=== PATIENT | male | born 1945 | race Caucasian/White ===

== ENCOUNTER 2019-09-25 08:28 | Outpatient (CLI) | payer MEDICARE, MEDICAID, SELFPAY ==
--- NOTE | 2019-09-25 08:40 | EST_ITS ---
Patient Info Name: Calvin Perez Age: 74 years : 1945 Gender: Male Ht: 69 in Wt: 210 lbs BSA: 2.18 m2 HR: 63 bpm Technical Quality: Good Exam Date: 09/25/2019 9:06 AM Exam Location: [facility] Pulmonary Patient Status: Outpatient Admit Date: 09/25/2019 Staff Ordering Physician: Mely Steinberg NP Metallic Yarn Slitting Machine Operator: Magaly Whelan RCS Attending Provider: DAR CONRAD Referring Physician: Idris KITCHEN; Exercise Technologist: Fernanda Cruz RDCS Nurse: Dar Sam ANP, ACNP- Exam Type: CA stress echo Study Info Indications - sob dizziness fatique Treadmill exercise stress echocardiogram is performed. Summary 1. Left ventricular chamber size, wall thickness, systolic and diastolic function are normal with no regional wall motion abnormalities with an estimated ejection fraction of 60-65%. 2. Left ventricular end systolic volume decreases post stress. 3. All segments become normally hyperdynamic. 4. Normal sinus rhythm - normal ECG. 5. No abnormal ST/T wave changes with exercise. Stress Echo Findings Left Ventricle Left ventricular end systolic volume decreases post stress. All segments become normally hyperdynamic. Left Ventricle Left ventricular chamber size, wall thickness, systolic and diastolic function are normal with no regional wall motion abnormalities with an estimated ejection fraction of 60-65%. Protocol: Rudy Stress ECG Details Stage: REST Duration (min): 0 min : 59 sec Speed (mph): 0.0 Grade (%): 0 HR (bpm): 63 SBP (mmHg): 142 DBP (mmHg): 71 METS: --- Stage: REST Duration (min): 9 min : 35 sec Speed (mph): 0.0 Grade (%): 0 HR (bpm): 75 SBP (mmHg): 142 DBP (mmHg): 71 METS: --- Stage: STAGE 1 Duration (min): 1 min : 0 sec Speed (mph): 1.7 Grade (%): 10 HR (bpm): 98 SBP (mmHg): 142 DBP (mmHg): 71 METS: --- Stage: STAGE 1 Duration (min): 2 min : 0 sec Speed (mph): 1.7 Grade (%): 10 HR (bpm): 106 SBP (mmHg): 142 DBP (mmHg): 71 METS: --- Stage: STAGE 1 Duration (min): 3 min : 0 sec Speed (mph): 1.7 Grade (%): 10 HR (bpm): 114 SBP (mmHg): 190 DBP (mmHg): 85 METS: --- Stage: STAGE 2 Duration (min): 1 min : 0 sec Speed (mph): 2.5 Grade (%): 12 HR (bpm): 123 SBP (mmHg): 190 DBP (mmHg): 85 METS: --- Stage: STAGE 2 Duration (min): 2 min : 0 sec Speed (mph): 2.5 Grade (%): 12 HR (bpm): 123 SBP (mmHg): 209 DBP (mmHg): 85 METS: --- Stage: STAGE 2 Duration (min): 3 min : 0 sec Speed (mph): 2.5 Grade (%): 12 HR (bpm): 124 SBP (mmHg): 209 DBP (mmHg): 85 METS: --- Stage: RECOVERY Duration (min): 0 min : 59 sec Speed (mph): 0.0 Grade (%): 0 HR (bpm): 96 SBP (mmHg): 218 DBP (mmHg): 58 METS: --- Stage: RECOVERY Duration (min): 1 min : 59 sec Speed (mph): 0.0 Grade (%): 0 HR (bpm): 90 SBP (mmHg): 218 DBP (mmHg): 58 METS: --- --------
== END 2019-09-25 08:29 | disposition home or self-care (01) ==
PROVIDERS: PCP Family Medicine; Visit Provider Nurse Practitioner
DX: R06.02 Shortness of breath (principal)
CPT/HCPCS: 93351

== ENCOUNTER → 2020-06-06 10:14 | Outpatient (CLI) | payer MEDICARE, MEDICAID, SELFPAY ==
--- NOTE | ~2020-06-06 | XR_ITS ---
EXAMINATION: XR shoulder RT min 2V DATE: 06/06/2020 10:34 INDICATION: Right shoulder pain TECHNIQUE: AP internally and externally rotated, AP oblique externally rotated and transscapular Y vi ews of the right shoulder were obtained. COMPARISON: None FINDINGS: Normal alignment. No fracture. Mild glenohumeral osteoarthritis. Moderate acromioclavicular osteoart hritis. Soft tissues are unremarkable. Calcified nodules in the right midlung zone along with calcifi ed right hilar lymph nodes consistent with old granulomatous disease. Moderate to severe lower cervic al facet osteoarthritis. IMPRESSION: Mild right glenohumeral and moderate acromioclavicular osteoarthritis. Reviewed, dictated and finalized at location B.
== END ==
PROVIDERS: PCP Nurse Practitioner Family; Visit Provider Nurse Practitioner Family
DX: M19.011 Primary osteoarthritis, right shoulder (principal); M47.812 Spondylosis without myelopathy or radiculopathy, cervical region
CPT/HCPCS: 73030

== ENCOUNTER 2020-12-17 09:52 | Outpatient (CLI) | payer MEDICARE, MEDICAID, SELFPAY ==
[2020-12-17 10:24] LABS: Anion Gap 6 mmol/L (8-16); Blood Urea Nitrogen 19 mg/dL (9-20); Calcium 9.4 mg/dL (8.4-10.2); Carbon Dioxide 31 mmol/L (22-30); Chloride 103 mmol/L (98-107); Estimated Glomerular Filt Rate > 60; Glucose 119 mg/dL (65-110); Sodium 140 mmol/L (137-145)
== END 2020-12-17 09:53 | disposition home or self-care (01) ==
LOC: ANHLAB 09:54
PROVIDERS: PCP Nurse Practitioner Family; Visit Provider Nurse Practitioner Family
DX: E87.6 Hypokalemia (principal)
CPT/HCPCS: 36415; 80048

== ENCOUNTER 2021-02-23 12:03 | Emergency (ER) | payer MEDICARE, MEDICAID, SELFPAY ==
--- NOTE | ~2021-02-23 | XR_ITS ---
EXAMINATION: XR abdomen/kub 1V DATE: 02/23/2021 12:45 INDICATION: Hematuria. TECHNIQUE: A supine view of the abdomen on 2 radiographs was obtained. COMPARISON: Chest CT 02/14/2018 FINDINGS: There are no dilated loops of bowel. There is a small volume of stool in the colon. The kid neys are obscured by bowel. IMPRESSION: 1. No definite urolithiasis. Bowel obscures the kidneys. Reviewed, dictated and finalized at location A. S NOTES DEVELOPER
[2021-02-23 12:22] VITALS: BP 139/76; PULSE 57; RESP 18; TEMP 36.4; O2SAT 99
--- NOTE | 2021-02-23 13:36 | ED.MALEGU ---
HPI - Male Genitourinary General Chief complaint: Urogenital-Male Stated complaint: Blood in Urine Time Seen by Provider: 02/23/21 12:50 Source: patient, RN notes reviewed and old records reviewed Mode of arrival: ambulatory Limitations: no limitations History of Present Illness HPI Narrative: 75 year old male presents to express care with complaints of noting acute blood with clots in his urine starting last night and continuing this morning. He reports that he went out to eat with his friend last night and had tea to drink, no alcohol drank for 30 years. Patient denies any pain to his back or any supra pubic tenderness. Patient admits that his stream of urine has slowed but denies any episodes of inability to void. Patient states that he did have some chills last pm but no known fevers. MD Complaint: other (hematuria) Onset (ago): day(s) (since last night) Duration: progressively worsening Related Data Home Medications Medication Instructions Recorded Confirmed cholecalciferol (vitamin D3) 125 10,000 unit PO DAILY tablet 02/16/20 02/23/21 mcg (5,000 unit) tablet besifloxacin [Besivance] 1 drp DIRECTED 02/23/21 02/23/21 loteprednol etabonate [Lotemax SM] drp DIRECTED 02/23/21 pregabalin 50 mg DAILY 02/23/21 02/23/21 Allergies Allergy/AdvReac Type Severity Reaction Status Date / Time clarithromycin Allergy Unknown Dizziness Verified 02/23/21 12:53 Penicillins Allergy Unknown Swelling Verified 02/23/21 12:53 of Lip/Tongue/Throat Review of Systems Review of Systems: CONSTITUTIONAL: Denies fever, positive chills, no sweats. EYES: Denies visual changes, redness, or discharge. ENT: Denies rhinorrhea, congestion, sore throat, or otalgia. CARDIOVASCULAR: Denies chest pain, palpitations, or edema. RESPIRATORY: Denies cough or dyspnea. GASTROINTESTINAL: Denies abdominal pain, nausea, vomiting, or diarrhea. GENITOURINARY: Denies dysuria, positive hematuria with clots noted SKIN: Denies rash or itching. MUSCULOSKELETAL: Denies back pain, chronic right shoulder joint pain, or myalgia. NEUROLOGIC: Denies headache, numbness, or weakness. PSYCHIATRIC: Positive history of anxiety or depression. All systems reviewed & are unremarkable except as noted in HPI and below PMFSH Past Medical History Medical History Anxiety Arthralgia Arthritis Arthritis of shoulder region, right, degenerative Congestion of nasal sinus Dizziness Encounter for screening for malignant neoplasm of prostate GERD (gastroesophageal reflux disease) Hearing loss Hypertension Hypertension, essential, benign Memory loss Normal colonoscopy (~01/13/14) Dr Jernigan Sinus drainage Wears glasses Surgical History Surgical History History of ankle surgery Family History Family History Sibling Family history of diabetes mellitus in first degree relative Other Arthritis Depression Diabetes mellitus Heart disease High cholesterol Hypertension Neuropathy Social History Social History (Updated 02/23/21 @ 17:24 by Oly De Oliveira NP) Smoking status: Never smoker Second hand tobacco smoke exposure: No Alcohol intake: former Alcohol use details: no alcohol intake for 30 years Substance use: never Substance use type: does not use Gender identity (if verbalized by the patient): Male Exam Narrative: GENERAL: Well-appearing, well-nourished, and in no acute distress. HEAD: Normocephalic, atraumatic. EYES: PERRLA and EOMI. ENT: Nares clear, no rhinorrhea or epistaxis. Mucous membranes moist. NECK: Supple. No lymphadenopathy CHEST: Clear to auscultation. No respiratory distress. SaO2 99% on room air HEART: Regular rate and rhythm. No murmur heard. Normal peripheral pulses. ABDOMEN: Soft, nontender to palpation, nondistended, normal active bowel sounds
== END 2021-02-23 13:48 | disposition short-term general hospital (02) ==
PROVIDERS: Emergency Provider Registered Nurse; PCP Nurse Practitioner Family
DX: R31.9 Hematuria, unspecified (principal); R80.9 Proteinuria, unspecified; D70.8 Other neutropenia; I10 Essential (primary) hypertension
CPT/HCPCS: 74018; 81003; 87086; 99213; G0463

== ENCOUNTER 2021-02-23 14:38 | Emergency (ER) | payer MEDICARE, MEDICAID, SELFPAY ==
--- NOTE | ~2021-02-23 | CT_ITS ---
EXAMINATION: CT abdomen pelvis wo con, CT abdomen pelvis w con DATE: 02/23/2021 16:42 (accession [id number]), 02/23/2021 16:45 (accession [id number]) INDICATION: Hematuria TECHNIQUE: Computed tomography (CT) of the abdomen and pelvis was performed without and subsequently with 100 cc Omnipaque 350 intravenous contrast. Automated exposure control and iterative reconstructi on technique were employed. Exam dose: 1117.18 mGy-cm total exam DLP. COMPARISON: None FINDINGS: The lung bases are clear of infiltrate or consolidation. Normal heart size. No pericardia l or pleural effusion. There is a small sliding hiatal hernia. Diffuse hepatic steatosis. There is no hepatic, splenic, pancreatic, adrenal or renal space occupying mass lesion. The gallbladder is present. No bile duct or pancreatic duct dilatation. 4.7 cm and 1.3 cm and smaller left renal cysts. 1.3 cm exophytic lower pole and 8 mm upper pole right renal cysts. 4 mm nonobstructing lower pole right renal calculus. Normal appendix. No bowel obstruction or intraperitoneal free air. Small fat containing umbilical hernia. Small fat containing left inguinal hernia. There is prostate enlargement and calcification. Degenerative spurring of the thoracic and lumbar spine. No suspicious osteolytic or osteoblastic les ions. IMPRESSION: Prostate enlargement Bilateral renal cysts Small nonobstructing right renal calculus Reviewed, dictated and finalized at Location [facility]. Reviewed, dictated and finalized at location B. ER IMPRESSION: Prostate enlargement Bilateral renal cysts Small nonobstructing right renal calculus
[2021-02-23 14:39] VITALS: BP 186/96; PULSE 62; RESP 17; TEMP 36.3; O2SAT 97
[2021-02-23 15:49] LABS: Basophils Percent Auto 0.4 % (0.2-1.2); Eosinophils Absolute Auto 0.1 K/mm3 (0-0.3); Hematocrit 48.5 % (42.0-52.0); Hemoglobin 16.7 g/dL (14.0-18.0); Immature Granulocyte Absolute 0.03 K/mm3 (0.00-0.031); Immature Granulocyte Percent A 0.3 % (0-0.5); Lymphocytes Absolute Auto 2.07 K/mm3 (0.9-3.2); Lymphocytes Percent Auto 22.5 % (18.3-44.2); Mean Corpuscular HGB Conc 34.4 g/dl (32-36); Mean Corpuscular Hemoglobin 31.6 pg (26-34); Mean Corpuscular Volume 91.9 fl (80-100); Mean Platelet Volume 10.5 fl (7.4-10.4); Monocytes Percent Auto 10.8 % (2.6-8.5); Platelet Count Result 246 k/mm3 (150-375); Red Blood Count 5.28 M/mm3 (4.6-6.20); Red Cell Distribution Width 12.2 % (11.5-14.5); White Blood Count 9.2 K/mm3 (4.5-10.0)
[2021-02-23 15:58] LABS: Prothrombin Time 12.9 Seconds (11.1-14.7)
[2021-02-23 15:59] LABS: Partial Thromboplastin Time 27.7 SECONDS (22.3-36.8)
[2021-02-23 16:00] LABS: Add Urine Microscopic? YES; Appearance Urine Turbid (Clear); Bilirubin Urine Negative (Negative); Blood Urine 3+ (Negative); Color Urine Red (Yellow); Glucose Urine UA 1+ mg/dL (Negative); Ketones Urine Trace mg/dL (Negative); Leukocyte Esterase Ur Negative LEU/UL (Negative); Nitrate Urine Negative (Negative); Protein Urine 2+ mg/dL (Negative); RBC Urine >75 /hpf (0-2); Specific Grav Ur 1.018 (1.001-1.035); Urobilinogen Urine Negative mg/dL (<2.0)
[2021-02-23 16:12] LABS: Alanine Aminotransferase 28 U/L (4-50); Albumin Level 4.5 g/dL (3.5-5.1); Alkaline Phosphatase 97 U/L (38-126); Anion Gap 12 mmol/L (8-16); Aspartate Amino Transferase 40 U/L (17-59); Bilirubin,Total 1.4 mg/dL (0.2-1.3); Blood Urea Nitrogen 19 mg/dL (9-20); Calcium 9.8 mg/dL (8.4-10.2); Carbon Dioxide 26 mmol/L (22-30); Chloride 101 mmol/L (98-107); Estimated CRCL calculation 71 ml/min; Estimated Glomerular Filt Rate > 60; Glucose 108 mg/dL (65-110); Potassium 3.6 mmol/L (3.4-5.0); Sodium 139 mmol/L (137-145)
[2021-02-23 16:35] VITALS: BP 169/93; PULSE 80; RESP 18; O2SAT 98
--- NOTE | 2021-02-23 17:03 | ED.MALEGU ---
HPI - Male Genitourinary General Chief complaint: Urogenital-Male <Nan Martin MD - Last Filed: 02/23/21 17:08> Stated complaint: hematuria with clots <Nan Martin MD - Last Filed: 02/23/21 17:08> Time Seen by Provider: 02/23/21 14:41 <Nan Martin MD - Last Filed: 02/23/21 17:08> Source: patient <Nan Martin MD - Last Filed: 02/23/21 17:08> Mode of arrival: ambulatory <Nan Martin MD - Last Filed: 02/23/21 17:08> Limitations: no limitations <Nan Martin MD - Last Filed: 02/23/21 17:08> History of Present Illness HPI Narrative: This is a 75 year old male who presents from urgent care for evaluation of hematuria. Patient started having blood in his urine last night. He also reports passing blood clots in his urine. He reports he is still passing dark red urine but he is unsure of bloods. He denies previous history of hematuria. He also denies blood thinners or aspirin use. He denies abdominal pain, back pain, fever or nausea/vomiting. He denies reports increase nightly urination and some decrease in stream. He states he thought all of this was due to old age. He has never been treated for an enlarged prostate but states his doctor does perform PSA. <Nan Martin MD - Last Filed: 02/23/21 17:08> Related Data Home medications: Home Medications Medication Instructions Recorded Confirmed cholecalciferol (vitamin D3) 125 10,000 unit PO DAILY tablet 02/16/20 02/23/21 mcg (5,000 unit) tablet besifloxacin [Besivance] 1 drp DIRECTED 02/23/21 02/23/21 loteprednol etabonate [Lotemax SM] drp DIRECTED 02/23/21 pregabalin 50 mg DAILY 02/23/21 02/23/21 <Nan Martin MD - Last Filed: 02/23/21 17:08> Allergies/Adverse reactions: Allergies Allergy/AdvReac Type Severity Reaction Status Date / Time clarithromycin Allergy Unknown Dizziness Verified 02/23/21 12:53 Penicillins Allergy Unknown Swelling Verified 02/23/21 12:53 of Lip/Tongue/Throat <Nan Martin MD - Last Filed: 02/23/21 17:08> Review of Systems Review of Systems: All systems reviewed & are unremarkable except as noted in HPI and below <Nan Martin MD - Last Filed: 02/23/21 17:08> [facility] Past Medical History Medical History: Medical History Anxiety Arthralgia Arthritis Arthritis of shoulder region, right, degenerative Congestion of nasal sinus Dizziness Encounter for screening for malignant neoplasm of prostate GERD (gastroesophageal reflux disease) Hearing loss Hypertension Hypertension, essential, benign Memory loss Normal colonoscopy (~01/13/14) Dr Jernigan Sinus drainage Wears glasses <Nan Martin MD - Last Filed: 02/23/21 17:08> Surgical History Surgical History: Surgical History History of ankle surgery <Nan Martin MD - Last Filed: 02/23/21 17:08> Family History Family History: Family History Sibling Family history of diabetes mellitus in first degree relative Other Arthritis Depression Diabetes mellitus Heart disease High cholesterol Hypertension Neuropathy <Nan Martin MD - Last Filed: 02/23/21 17:08> Social History Social History: Social History (Updated 02/23/21 @ 17:24 by Oly De Oliveira NP) Smoking status: Never smoker Second hand tobacco smoke exposure: No Alcohol intake: former Alcohol use details: no alcohol intake for 30 years Substance use: never Substance use type: does not use Gender identity (if verbalized by the patient): Male <Nan Martin MD - Last Filed: 02/23/21 17:08> Exam Const: General: no acute distress and alert <Nan Martin MD - Last Filed: 02/23/21 17:08> HENMT: Head: normocephalic and atraumatic <Nan Martin MD - Last
[2021-02-23 18:40] VITALS: BP 146/77; PULSE 56; RESP 16; O2SAT 99
== END 2021-02-23 18:43 | disposition home or self-care (01) ==
PROVIDERS: Emergency Provider General Practice; PCP Nurse Practitioner Family
DX: N40.0 Benign prostatic hyperplasia without lower urinary tract symptoms (principal); R31.0 Gross hematuria; M19.011 Primary osteoarthritis, right shoulder; K21.9 Gastro-esophageal reflux disease without esophagitis; I10 Essential (primary) hypertension; N28.1 Cyst of kidney, acquired; N20.0 Calculus of kidney
CPT/HCPCS: 36415; 74018; 74176; 74177; 74178; 80053; 81001; 81003; 85025; 85610; 85730; 87086; 99284; Q9967

== ENCOUNTER 2021-12-12 10:14 | Outpatient (CLI) | payer MEDICARE, MEDICAID, SELFPAY ==
[2021-12-12 19:31] LABS: Alanine Aminotransferase 23 U/L (6-50); Albumin Level 4.5 g/dL (3.5-5.1); Alkaline Phosphatase 83 U/L (38-126); Anion Gap 9 mmol/L (8-16); Aspartate Amino Transferase 28 U/L (17-59); Bilirubin,Total 1.5 mg/dL (0.2-1.3); Blood Urea Nitrogen 16 mg/dL (9-20); Calcium 9.2 mg/dL (8.4-10.2); Carbon Dioxide 26 mmol/L (22-30); Chloride 103 mmol/L (98-107); Cholesterol 202 mg/dL (0-200); Estimated Glomerular Filt Rate 59; Glucose 109 mg/dL (65-110); HDL Direct 43 mg/dL; Potassium 4.1 mmol/L (3.4-5.0); Sodium 138 mmol/L (137-145); Triglycerides 174 mg/dL (<150)
[2021-12-12 19:34] LABS: Basophils Absolute Auto 0.1 K/mm3 (0.0-0.1); Basophils Percent Auto 0.8 % (0.2-1.2); Eosinophils Absolute Auto 0.2 K/mm3 (0-0.3); Hematocrit 50.8 % (42.0-52.0); Immature Granulocyte Absolute 0.04 K/mm3 (0.00-0.031); Immature Granulocyte Percent A 0.6 % (0-0.5); Lymphocytes Absolute Auto 1.85 K/mm3 (0.9-3.2); Lymphocytes Percent Auto 29.5 % (18.3-44.2); Mean Corpuscular HGB Conc 33.5 g/dl (32-36); Mean Corpuscular Hemoglobin 31.3 pg (26-34); Mean Corpuscular Volume 93.6 fl (80-100); Mean Platelet Volume 11.1 fl (7.4-10.4); Monocytes Absolute Auto 0.7 K/mm3 (0.1-0.6); Neutrophils Absolute Auto 3.5 K/mm3 (1.3-6.7); Neutrophils Percent Auto 55.1 % (45.5-73.1); Platelet Count Result 232 k/mm3 (150-375); Red Blood Count 5.43 M/mm3 (4.6-6.20); Red Cell Distribution Width 13.5 % (11.5-14.5); White Blood Count 6.3 K/mm3 (4.5-10.0)
[2021-12-12 19:44] LABS: LDL Cholesterol Direct 104 mg/dL
[2021-12-12 20:02] LABS: Prostate Specific Antigen 2.8 ng/mL (< OR = 4.0)
[2021-12-12 20:55] LABS: Vitamin D 25 Hydroxy 73.2 ng/mL
== END 2021-12-12 10:15 | disposition home or self-care (01) ==
LOC: ANHGOSHLAB 10:16
PROVIDERS: PCP Family Medicine; Visit Provider Nurse Practitioner Family
DX: I10 Essential (primary) hypertension (principal); E55.9 Vitamin D deficiency, unspecified; E78.5 Hyperlipidemia, unspecified; Z12.5 Encounter for screening for malignant neoplasm of prostate
CPT/HCPCS: 36415; 80053; 80061; 82306; 84153; 85025; G0103

== ENCOUNTER 2022-06-21 09:45 | Outpatient (CLI) | payer MEDICARE, MEDICAID, SELFPAY ==
[2022-06-21 13:06] LABS: Basophils Absolute Auto 0.1 K/mm3 (0.0-0.1); Basophils Percent Auto 0.7 % (0.2-1.2); Eosinophils Absolute Auto 0.1 K/mm3 (0-0.3); Eosinophils Percent Auto 1.9 % (0-4.4); Hematocrit 49.8 % (42.0-52.0); Hemoglobin 16.9 g/dL (14.0-18.0); Immature Granulocyte Absolute 0.03 K/mm3 (0.00-0.031); Immature Granulocyte Percent A 0.4 % (0-0.5); Lymphocytes Absolute Auto 2.17 K/mm3 (0.9-3.2); Lymphocytes Percent Auto 29.9 % (18.3-44.2); Mean Corpuscular HGB Conc 33.9 g/dl (32-36); Mean Corpuscular Hemoglobin 31.3 pg (26-34); Mean Corpuscular Volume 92.2 fl (80-100); Mean Platelet Volume 11.1 fl (7.4-10.4); Monocytes Absolute Auto 0.9 K/mm3 (0.1-0.6); Monocytes Percent Auto 11.7 % (2.6-8.5); Neutrophils Percent Auto 55.4 % (45.5-73.1); Platelet Count Result 222 k/mm3 (150-375); Red Cell Distribution Width 12.8 % (11.5-14.5); White Blood Count 7.3 K/mm3 (4.5-10.0)
[2022-06-21 13:07] LABS: Alanine Aminotransferase 21 U/L (6-50); Albumin Level 4.3 g/dL (3.5-5.1); Alkaline Phosphatase 76 U/L (38-126); Anion Gap 5 mmol/L (8-16); Aspartate Amino Transferase 44 U/L (17-59); Bilirubin,Total 1.9 mg/dL (0.2-1.3); Blood Urea Nitrogen 21 mg/dL (9-20); Calcium 9.1 mg/dL (8.4-10.2); Carbon Dioxide 32 mmol/L (22-30); Chloride 102 mmol/L (98-107); Cholesterol 183 mg/dL (0-200); Estimated Glomerular Filt Rate > 60; Glucose 116 mg/dL (65-110); HDL Direct 39 mg/dL; Potassium 3.7 mmol/L (3.4-5.0); Sodium 139 mmol/L (137-145); Triglycerides 144 mg/dL (<150)
[2022-06-21 13:18] LABS: LDL Cholesterol Direct 100 mg/dL
[2022-06-21 13:34] LABS: Vitamin D 25 Hydroxy 70.6 ng/mL
[2022-06-21 15:51] LABS: Hemoglobin A1C 5.4 % (<5.7)
== END 2022-06-21 09:46 | disposition home or self-care (01) ==
LOC: ANHGOSHLAB 09:46
PROVIDERS: PCP Family Medicine; Visit Provider Nurse Practitioner Family
DX: E55.9 Vitamin D deficiency, unspecified (principal); I10 Essential (primary) hypertension; E78.5 Hyperlipidemia, unspecified; R73.01 Impaired fasting glucose
CPT/HCPCS: 36415; 80053; 80061; 82306; 83036; 84443; 85025

== ENCOUNTER 2022-12-24 17:56 | Emergency (ER) | payer MEDICARE, MEDICAID, SELFPAY ==
[2022-12-24 18:08] VITALS: BP 152/74; PULSE 71; RESP 20; TEMP 36.3; O2SAT 94
--- NOTE | 2022-12-24 18:15 | PC.NURSE ---
States infected toe is the left great toe.
--- NOTE | 2022-12-24 18:38 | ED.SKABFB ---
HPI - Skin/Abscess/Foreign Bdy General Chief complaint: Skin/Abscess/Foreign Body Stated complaint: Left Big Toe/Skin Sore Source: patient and RN notes reviewed History of Present Illness HPI narrative: 77-year-old male presents to urgent care with complaints of right great toe tenderness, redness, and swelling. Patient states he removed an ingrown toenail in this area last Saturday and has been having issues ever since. Patient began using Neosporin on the area and had improvement today. Denies any fevers, chills, chest pain, shortness of breath, or vomiting. Related Data Home Medications Medication Instructions Recorded Confirmed cholecalciferol (vitamin D3) 125 5,000 unit PO DAILY 12/12/21 06/21/22 mcg (5,000 unit) tablet zinc acetate 50 mg (zinc) capsule 50 mg PO DAILY 06/21/22 06/21/22 Allergies Allergy/AdvReac Type Severity Reaction Status Date / Time clarithromycin Allergy Unknown Dizziness Verified 06/21/22 08:36 Penicillins Allergy Unknown Swelling Verified 06/21/22 08:36 of Lip/Tongue/Throat Review of Systems Review of Systems: CONSTITUTIONAL: Denies fever, chills, or sweats. EYES: Denies visual changes, redness, or discharge. ENT: Denies otalgia and sore throat CARDIOVASCULAR: Denies chest pain, palpitations, or edema. RESPIRATORY: Denies cough or dyspnea. GASTROINTESTINAL: Denies abdominal pain, nausea, vomiting, or diarrhea. GENITOURINARY: Denies dysuria or hematuria. SKIN: Right great toe tenderness, redness, and swelling MUSCULOSKELETAL: Denies back pain, joint pain, or myalgia. NEUROLOGIC: Denies headache, numbness, or weakness. Pertinent positives per HPI. [facility] Past Medical History Medical History Anxiety Arthritis of shoulder region, right, degenerative Cataract (lens) fragments in eye following cataract surgery Dizziness GERD (gastroesophageal reflux disease) Hearing loss Hypertension, essential, benign Memory loss Normal colonoscopy (~01/13/14) Dr Jernigan Vitamin D deficiency Wears glasses Surgical History Surgical History History of ankle surgery Family History Family History Sibling Family history of diabetes mellitus in first degree relative Other Arthritis Depression Diabetes mellitus Heart disease High cholesterol Hypertension Neuropathy Social History Social History (Updated 06/21/22 @ 08:39 by Vera Howell MA) Smoking status: Never smoker Second hand tobacco smoke exposure: No Alcohol intake: former Alcohol use details: no alcohol intake for 30 years Substance use: never Substance use type: does not use Lack of Transportation: No Lack of Food: Never True Current Housing: I Have Housing Concerned About Future Housing: No Difficulty Paying Gas/Electric Bills: No Difficulty Paying for Meds: No Currently Unemployed: No Difficulty w/ Childcare or Family Care: No Occupation/Education: retired Gender identity (if verbalized by the patient): Male Agree to blood products: Yes Comments At the time of my signature, I reviewed and agree with the nursing past medical, surgical, social, and family history. There is no relevant family history pertinent to the patient complaint. Exam Narrative: GENERAL: This is a well-nourished, well-developed patient, in no apparent distress. HEAD: normocephalic, atraumatic. EYES: Sclera clear/white. Vision is grossly intact. EARS: External ears normal, auditory canals clear and without drainage. Hearing grossly intact. NOSE: External nose normal with no obvious nasal discharge, nares without redness, no rhinorrhea. CARDIOVASCULAR: Regular rate and rhythm without murmurs, gallops, or rubs. RESPIRATORY: Clear to auscultation. Breath sounds equal bilaterally. No wheezes, rales, or rhonchi. GASTROINTESTINAL: Abdom
== END 2022-12-24 18:56 | disposition home or self-care (01) ==
PROVIDERS: Emergency Provider Nurse Practitioner Family
DX: L03.032 Cellulitis of left toe (principal); M19.011 Primary osteoarthritis, right shoulder; K21.9 Gastro-esophageal reflux disease without esophagitis; I10 Essential (primary) hypertension; E55.9 Vitamin D deficiency, unspecified
CPT/HCPCS: 99213; G0463

== ENCOUNTER 2022-12-27 09:39 | Outpatient (CLI) | payer MEDICARE, MEDICAID, SELFPAY ==
[2022-12-27 19:48] LABS: Alanine Aminotransferase 20 U/L (6-50); Albumin Level 4.3 g/dL (3.5-5.1); Alkaline Phosphatase 72 U/L (38-126); Anion Gap 8 mmol/L (8-16); Aspartate Amino Transferase 45 U/L (17-59); Bilirubin,Total 2.4 mg/dL (0.2-1.3); Blood Urea Nitrogen 20 mg/dL (9-20); Calcium 9.1 mg/dL (8.4-10.2); Carbon Dioxide 27 mmol/L (22-30); Chloride 102 mmol/L (98-107); Cholesterol 189 mg/dL (0-200); Estimated Glomerular Filt Rate > 60; Glucose 104 mg/dL (65-110); HDL Direct 35 mg/dL; Potassium 3.1 mmol/L (3.4-5.0); Sodium 137 mmol/L (137-145); Triglycerides 171 mg/dL (<150)
[2022-12-27 19:59] LABS: LDL Cholesterol Direct 99 mg/dL
[2022-12-27 20:11] LABS: Basophils Absolute Auto 0.1 K/mm3 (0.0-0.1); Basophils Percent Auto 0.8 % (0.2-1.2); Eosinophils Absolute Auto 0.2 K/mm3 (0-0.3); Eosinophils Percent Auto 3.2 % (0-4.4); Hematocrit 48.9 % (42.0-52.0); Hemoglobin 16.7 g/dL (14.0-18.0); Immature Granulocyte Absolute 0.03 K/mm3 (0.00-0.031); Immature Granulocyte Percent A 0.4 % (0-0.5); Lymphocytes Absolute Auto 2.18 K/mm3 (0.9-3.2); Mean Corpuscular HGB Conc 34.2 g/dl (32-36); Mean Corpuscular Volume 90.7 fl (80-100); Mean Platelet Volume 11.1 fl (7.4-10.4); Monocytes Percent Auto 13.5 % (2.6-8.5); Neutrophils Absolute Auto 3.8 K/mm3 (1.3-6.7); Neutrophils Percent Auto 52.1 % (45.5-73.1); Platelet Count Result 252 k/mm3 (150-375); Red Blood Count 5.39 M/mm3 (4.6-6.20); Red Cell Distribution Width 12.8 % (11.5-14.5); White Blood Count 7.3 K/mm3 (4.5-10.0)
[2022-12-27 20:56] LABS: Hemoglobin A1C 5.4 % (<5.7)
== END 2022-12-27 09:40 | disposition home or self-care (01) ==
LOC: ANHGOSHLAB 09:41
PROVIDERS: PCP Family Medicine; Visit Provider Nurse Practitioner Family
DX: I10 Essential (primary) hypertension (principal); R73.03 Prediabetes; Z13.29 Encounter for screening for other suspected endocrine disorder
CPT/HCPCS: 36415; 80053; 80061; 83036; 84443; 85025

== ENCOUNTER 2023-01-04 09:20 | Outpatient (CLI) | payer MEDICARE, MEDICAID, SELFPAY ==
[2023-01-04 18:33] LABS: Potassium 3.7 mmol/L (3.4-5.0)
== END 2023-01-04 09:21 | disposition home or self-care (01) ==
LOC: ANHGOSHLAB 09:22
PROVIDERS: PCP Family Medicine; Visit Provider Nurse Practitioner Family
DX: E87.6 Hypokalemia (principal)
CPT/HCPCS: 36415; 84132

== ENCOUNTER 2023-01-15 12:32 | Emergency (ER) | payer MEDICARE, MEDICAID, SELFPAY ==
--- NOTE | ~2023-01-15 | XR_ITS ---
XR knee RT min 4V DATE: 01/15/2023 13:15 INDICATION: Twisted right knee TECHNIQUE: 6 views COMPARISON: None FINDINGS: There is a virtually nondisplaced linear intra-articular fracture of the lateral aspect of the patella with suprapatellar joint effusion consistent with hemarthrosis. Prominent patellar enthesopathy at the quadriceps and patellar tendon insertion sites. Mild osteoarthritis including mild loss of height and mild periarticular spurring at the medial kyle rtment primarily. IMPRESSION: Linear intra-articular lateral virtually nondisplaced patellar fracture with hemarthrosis Reviewed, dictated and finalized at location L. OGRAPHIC PRINTING MACHINIST IMPRESSION: Linear intra-articular lateral virtually nondisplaced patellar frac ture with hemarthrosis
[2023-01-15 12:38] VITALS: BP 148/73; PULSE 66; RESP 20; TEMP 36.1; O2SAT 96
--- NOTE | 2023-01-15 12:59 | ED.LOWEXIN ---
HPI - Extremity Injury (Lower) General Chief Complaint: Extremity Injury, Lower Stated Complaint: right knee injury Source: patient and RN notes reviewed Mode of arrival: ambulatory Limitations: no limitations History of Present Illness HPI Narrative: Patient is a 77-year-old male who presents to the [facility] with complaints of right knee pain. Patient states that on Saturday around 2:00 p.m., he was working on his lawnmower when his foot got caught in the discharge at the mower. Patient states that this caused his foot to twist, injuring the right knee. Patient states that he has had significant swelling and decreased range of motion since that time. He states that his range of motion has actually improved over the last couple days. He states that his pain is exacerbated with flexion of the knee. He is neurovascularly intact distally. Sensation is intact and he denies numbness. There is a notable abrasion and swelling to the right anterior knee. Related Data Home Medications Medication Instructions Recorded Confirmed cholecalciferol (vitamin D3) 125 5,000 unit PO DAILY 12/12/21 01/15/23 mcg (5,000 unit) tablet zinc acetate 50 mg (zinc) capsule 50 mg PO DAILY 06/21/22 01/15/23 Allergies Allergy/AdvReac Type Severity Reaction Status Date / Time clarithromycin Allergy Unknown Dizziness Verified 01/15/23 13:19 Penicillins Allergy Unknown Swelling Verified 01/15/23 13:19 of Lip/Tongue/Throat Review of Systems Review of Systems: CONSTITUTIONAL: Denies fever, chills, or sweats. EYES: Denies visual changes, redness, or discharge. ENT: Denies otalgia and sore throat CARDIOVASCULAR: Denies chest pain, palpitations, or edema. RESPIRATORY: Denies cough or dyspnea. GASTROINTESTINAL: Denies abdominal pain, nausea, vomiting, or diarrhea. GENITOURINARY: Denies dysuria or hematuria. SKIN: Denies rash or itching. MUSCULOSKELETAL: Denies back pain or myalgia. Reports right knee pain and swelling. NEUROLOGIC: Denies headache, numbness, or weakness. Pertinent positives per HPI. [facility] Past Medical History Medical History Anxiety Arthritis of shoulder region, right, degenerative Bunion Cataract (lens) fragments in eye following cataract surgery Dizziness GERD (gastroesophageal reflux disease) Hearing loss Hypertension, essential, benign Hypokalemia Memory loss Normal colonoscopy (~01/13/14) Dr Jernigan Vitamin D deficiency Wears glasses Surgical History Surgical History History of ankle surgery Family History Family History Sibling Family history of diabetes mellitus in first degree relative Other Arthritis Depression Diabetes mellitus Heart disease High cholesterol Hypertension Neuropathy Social History Social History Smoking status: Never smoker Second hand tobacco smoke exposure: No Alcohol intake: former Alcohol use details: no alcohol intake for 30 years Substance use: never Substance use type: does not use Lack of Transportation: No Lack of Food: Never True Current Housing: I Have Housing Concerned About Future Housing: No Difficulty Paying Gas/Electric Bills: No Difficulty Paying for Meds: No Currently Unemployed: No Difficulty w/ Childcare or Family Care: No Occupation/Education: retired Gender identity (if verbalized by the patient): Male Agree to blood products: Yes Comments At the time of my signature, I reviewed and agree with the nursing past medical, surgical, social, and family history. There is no relevant family history pertinent to the patient complaint. Exam Narrative: GENERAL: This is a well-nourished, well-developed patient, in no apparent distress. HEAD: normocephalic, atraumatic. EYES: PERR
== END 2023-01-15 13:48 | disposition home or self-care (01) ==
PROVIDERS: Emergency Provider Nurse Practitioner; PCP Family Medicine
DX: S82.001A Unspecified fracture of right patella, initial encounter for closed fracture (principal); W22.8XXA Striking against or struck by other objects, initial encounter; M19.011 Primary osteoarthritis, right shoulder; K21.9 Gastro-esophageal reflux disease without esophagitis; I10 Essential (primary) hypertension; E55.9 Vitamin D deficiency, unspecified
CPT/HCPCS: 73564; 99214; G0463; L1830

== ENCOUNTER 2023-02-26 11:54 | Outpatient (CLI) | payer MEDICARE, MEDICAID, SELFPAY ==
--- NOTE | ~2023-02-26 | XR_ITS ---
EXAMINATION: XR knee RT min 4V DATE: 02/26/2023 12:26 INDICATION: Unspecified fracture of right patella. TECHNIQUE: 4 views of right knee were obtained. COMPARISON: Right knee radiographs 01/15/2023 FINDINGS: Bone alignment is normal. There is a sagittal fracture through patellar lateral facet with less than 2 mm distraction. There is moderate osteoarthritis of medial compartment and mild osteoarth ritis of lateral and patellofemoral compartments. No knee joint effusion. IMPRESSION: 1. Unchanged sagittal fracture through lateral facet of patella. 2. Moderate right knee osteoarthritis. Reviewed, dictated and finalized at location E. ONNEL RECORDS CLERK
== END 2023-02-26 11:55 | disposition home or self-care (01) ==
PROVIDERS: PCP Family Medicine; Visit Provider Orthopaedic Surgery
DX: S82.001A Unspecified fracture of right patella, initial encounter for closed fracture (principal); M17.11 Unilateral primary osteoarthritis, right knee; X58.XXXA Exposure to other specified factors, initial encounter
CPT/HCPCS: 73564

== ENCOUNTER 2023-05-01 16:32 | Emergency (ER) | payer MEDICARE, MEDICAID, SELFPAY ==
[2023-05-01 16:38] VITALS: BP 125/72; PULSE 64; RESP 16; TEMP 36.3; O2SAT 98
--- NOTE | 2023-05-01 16:56 | ED.URI ---
HPI - URI/Sore Throat General Chief Complaint: Upper Respiratory Infection Stated Complaint: cough/wheezing History of Present Illness HPI Narrative: pt is a 77 y/o male, presents to with two week hx of increased sneezing, nasal congestion and the sensation of post nasal drip for the past week that has woke him at night with coughing. He occasionally wheezes as a result. He is scheduled to see an driver license examiner who has discussed the option of allergy injections however, he feels his symptoms are disrupting his sleep and is concerned he is developing a sinus infection. His nasal discharge is clear. He has no significant cough during the say and his cough is always dry. He denies fevers or chills and he has no known sick contacts or COV exposures. He is not taking any OTC or prescription medication for symptom relief as he notes he has tried all the OTC stuff and none of it works . He denies any other associated symptoms or modifying factors. Related Data Home Medications Medication Instructions Recorded Confirmed cholecalciferol (vitamin D3) 125 5,000 unit PO DAILY 12/12/21 05/01/23 mcg (5,000 unit) tablet zinc acetate 50 mg (zinc) capsule 50 mg PO DAILY 06/21/22 05/01/23 Allergies Allergy/AdvReac Type Severity Reaction Status Date / Time clarithromycin Allergy Unknown Dizziness Verified 05/01/23 16:53 Penicillins Allergy Unknown Swelling Verified 05/01/23 16:53 of Lip/Tongue/Throat Review of Systems ENT: Comments: refer to HPI Respiratory: Comments: refer to HPI [facility] Past Medical History Medical History Anxiety Arthritis of shoulder region, right, degenerative Bunion Cataract (lens) fragments in eye following cataract surgery Closed nondisplaced fracture of right patella Dizziness GERD (gastroesophageal reflux disease) Hearing loss History of patellar fracture (~01/15/23) Rt Hypertension, essential, benign Hypokalemia Memory loss Normal colonoscopy (~01/13/14) Dr Jernigan Vitamin D deficiency Wears glasses Surgical History Surgical History History of ankle surgery Family History Family History Sibling Family history of diabetes mellitus in first degree relative Other Arthritis Depression Diabetes mellitus Heart disease High cholesterol Hypertension Neuropathy Social History Social History (Updated 03/29/23 @ 15:52 by Jayna Brown) Smoking status: Never smoker Second hand tobacco smoke exposure: No Alcohol intake: former Alcohol use details: no alcohol intake for 30 years Substance use: never Substance use type: does not use Do You Feel Safe in your Home?: Yes Lack of Transportation: No Lack of Food: Never True Current Housing: I Have Housing Concerned About Future Housing: No Difficulty Paying Gas/Electric Bills: No Difficulty Paying for Meds: No Currently Unemployed: No Difficulty w/ Childcare or Family Care: No Occupation/Education: retired Gender identity (if verbalized by the patient): Male Agree to blood products: Yes Exam Const: General: healthy appearing, no acute distress and alert Nutritional Appearance: well nourished Orientation/consciousness: patient oriented x3 HENMT: Head: normal to inspection Ears: external ears normal and TM abnormal retracted bilateral Face and sinus: normal facial exam and sinuses nontender Mouth: Yes Normal oral and palatal mucosa present Teeth and gingiva: dentition normal Throat: posterior oropharynx normal and uvula midline Other: nasal mucosa is swollen without erythema or purulent drainage Eyes: Conjunctivae: conjunctivae normal Pupils: Equal, round and reactive pupils present EOM: EOMs intact bilaterally Direct Ophthalmoscopy: no photophobia Neck: Neck: normal visual inspection, no lymphadenopathy and no
== END 2023-05-01 17:10 | disposition home or self-care (01) ==
PROVIDERS: Emergency Provider Nurse Practitioner Family
DX: J00 Acute nasopharyngitis [common cold] (principal); J30.2 Other seasonal allergic rhinitis; K21.9 Gastro-esophageal reflux disease without esophagitis; I10 Essential (primary) hypertension; E55.9 Vitamin D deficiency, unspecified; M19.011 Primary osteoarthritis, right shoulder
CPT/HCPCS: 99213; G0463

== ENCOUNTER 2023-07-05 09:40 | Outpatient (CLI) | payer MEDICARE, MEDICAID, SELFPAY ==
[2023-07-05 20:15] LABS: Basophils Percent Auto 0.6 % (0.2-1.2); Eosinophils Absolute Auto 0.1 K/mm3 (0-0.3); Eosinophils Percent Auto 2.1 % (0-4.4); Hemoglobin 17.2 g/dL (14.0-18.0); Immature Granulocyte Absolute 0.04 K/mm3 (0.00-0.031); Immature Granulocyte Percent A 0.6 % (0-0.5); Lymphocytes Absolute Auto 1.69 K/mm3 (0.9-3.2); Lymphocytes Percent Auto 27.1 % (18.3-44.2); Mean Corpuscular HGB Conc 33.7 g/dl (32-36); Mean Corpuscular Hemoglobin 30.6 pg (26-34); Mean Corpuscular Volume 90.6 fl (80-100); Mean Platelet Volume 11.3 fl (7.4-10.4); Monocytes Absolute Auto 0.8 K/mm3 (0.1-0.6); Monocytes Percent Auto 12.3 % (2.6-8.5); Neutrophils Absolute Auto 3.6 K/mm3 (1.3-6.7); Neutrophils Percent Auto 57.3 % (45.5-73.1); Platelet Count Result 225 k/mm3 (150-375); Red Blood Count 5.63 M/mm3 (4.6-6.20); Red Cell Distribution Width 12.6 % (11.5-14.5); White Blood Count 6.2 K/mm3 (4.5-10.0)
[2023-07-05 20:21] LABS: Alanine Aminotransferase 17 U/L (6-50); Albumin Level 4.3 g/dL (3.5-5.1); Alkaline Phosphatase 83 U/L (38-126); Anion Gap 8 mmol/L (4-12); Aspartate Amino Transferase 29 U/L (17-59); Bilirubin,Total 1.8 mg/dL (0.2-1.3); Blood Urea Nitrogen 18 mg/dL (9-20); Calcium 9.2 mg/dL (8.4-10.2); Carbon Dioxide 27 mmol/L (22-30); Chloride 104 mmol/L (98-107); Cholesterol 189 mg/dL (0-200); Estimated Glomerular Filt Rate > 60; Glucose 114 mg/dL (65-110); HDL Direct 41 mg/dL; Potassium 3.7 mmol/L (3.4-5.0); Sodium 139 mmol/L (137-145); Triglycerides 168 mg/dL (<150)
[2023-07-05 20:32] LABS: LDL Cholesterol Direct 109 mg/dL
[2023-07-05 21:20] LABS: Hemoglobin A1C 5.4 % (<5.7)
[2023-07-08 13:13] LABS: PSA, Free 0.7 ng/mL; PSA, Total 2.4 ng/mL (< OR = 4.0); Percent Free Prostate Spec Ag 29 % (calc) (>25)
== END 2023-07-05 09:41 | disposition home or self-care (01) ==
LOC: ANHGOSHLAB 09:42
PROVIDERS: Nurse Practitioner Family; PCP Family Medicine; Visit Provider Nurse Practitioner Family
DX: R73.03 Prediabetes (principal); Z12.5 Encounter for screening for malignant neoplasm of prostate; I10 Essential (primary) hypertension; Z13.29 Encounter for screening for other suspected endocrine disorder; Z13.220 Encounter for screening for lipoid disorders
CPT/HCPCS: 36415; 80053; 80061; 83036; 84153; 84154; 84443; 85025

== ENCOUNTER 2023-08-12 08:17 | Outpatient (CLI) | payer MEDICARE, MEDICAID, SELFPAY ==
--- NOTE | ~2023-08-12 | CT_ITS ---
Non-contrast Head CT History: Dizziness and giddiness Technique: Axial non-contrast imaging of the brain was performed. Dose reduction technique was used on this scan by utilizing automated exposure control and iterative reconstruction technique. The dose -length product (DLP) was 599.57 mGy-cm. Findings: There is no evidence of intracranial hemorrhage, mass lesion, or acute infarct. Brain par enchyma appears normal. The ventricles and subarachnoid spaces are normal in size. The calvarium ap pears normal. The visualized paranasal sinuses and mastoid air cells are clear. Impression: No significant abnormality seen. Reviewed, dictated and finalized at location . Impression: No significant abnormality seen.
== END 2023-08-12 08:18 ==
PROVIDERS: PCP Family Medicine; Visit Provider Nurse Practitioner
DX: R42 Dizziness and giddiness (principal)
CPT/HCPCS: 70450

== ENCOUNTER 2023-10-29 08:45 | Emergency (ER) | payer MEDICARE, MEDICAID, SELFPAY ==
--- NOTE | ~2023-10-29 | XR_ITS ---
Right elbow Technique: AP, oblique, and lateral views were obtained. Clinical History: Pain Findings: No acute fracture or dislocation is seen. There is a large chronic ossification of the post erior elbow, which could reflect chronic nonunited fracture of the olecranon. Osseous alignment is an atomic. Joint spaces are preserved. There is no displacement of the fat pads, and soft tissues are un remarkable. Impression: No acute abnormality. Large corticated ossification posteriorly, likely chronic, nonunited olecranon fracture. Reviewed, dictated and finalized at location M. Impression: No acute abnormality. Large corticated ossification posteriorly, likely chronic, nonunited olecranon fracture.
[2023-10-29 09:02] VITALS: BP 130/71; PULSE 55; RESP 18; TEMP 36.2; O2SAT 96
--- NOTE | 2023-10-29 09:47 | ED.UPPEXIN ---
HPI - Extremity Injury (Upper) General Chief Complaint: Extremity Injury, Upper Stated Complaint: Right Elbow Injury History of Present Illness HPI narrative: patient is a 78-year-old male, presents to [facility] with right elbow pain, he states that last night he went out onto his porch to get some fresh air and slipped/tripped over a board he did not see in his path. He was able to catch himself with his right upper extremity however he states that he strained his forearm and felt a pop in his right elbow. He describes the injury as jamming the elbow. He states the pain is slightly improved today however he does have soreness in the elbow joint and was concerned he may have caused a fracture, prompting his visit. He denies recollection of prior fracture injuries to the right elbow in the past. He does have history of olecranon bursitis in that area. He denies any additional injuries as result of this incident. He did not hit his head or experience LOC. He has no neck or back pain. He denies distal paresthesias. No modifying factors were attempted. He is right-hand dominant. Related Data Home Medications Medication Instructions Recorded Confirmed cholecalciferol (vitamin D3) 125 5,000 unit PO DAILY 12/12/21 10/29/23 mcg (5,000 unit) tablet tamsulosin 0.4 mg capsule 0.4 mg PO DAILY 10/29/23 10/29/23 Allergies Allergy/AdvReac Type Severity Reaction Status Date / Time clarithromycin Allergy Unknown Dizziness Verified 10/29/23 09:27 Penicillins Allergy Unknown Swelling Verified 10/29/23 09:27 of Lip/Tongue/Throat Review of Systems Musculoskeletal: Comments: Refer to [facility] Past Medical History Medical History Anxiety Arthritis of shoulder region, right, degenerative Bunion Cataract (lens) fragments in eye following cataract surgery Closed nondisplaced fracture of right patella Dizziness GERD (gastroesophageal reflux disease) Hearing loss History of patellar fracture (~01/15/23) Rt Hypertension, essential, benign Hypokalemia Memory loss Normal colonoscopy (~01/13/14) Dr Jernigan Vitamin D deficiency Wears glasses Surgical History Surgical History History of ankle surgery Family History Family History Sibling Family history of diabetes mellitus in first degree relative Other Arthritis Depression Diabetes mellitus Heart disease High cholesterol Hypertension Neuropathy Social History Social History (Updated 08/08/23 @ 10:04 by Meenakshi Richard) Social History: caffeine occasionally Smoking status: Never smoker Second hand tobacco smoke exposure: No Alcohol intake: former Alcohol use details: no alcohol intake for 30 years Substance use: never Substance use type: does not use Do You Feel Safe in your Home?: Yes Lack of Transportation: No Lack of Food: Never True Current Housing: I Have Housing Concerned About Future Housing: No Difficulty Paying Gas/Electric Bills: No Difficulty Paying for Meds: No Currently Unemployed: No Difficulty w/ Childcare or Family Care: No Occupation/Education: retired Gender identity (if verbalized by the patient): Male Agree to blood products: Yes Exam Const: General: healthy appearing, no acute distress and alert Nutritional Appearance: well nourished Orientation/consciousness: patient oriented x3 Limitations: no limitations HENMT: Head: normal to inspection Ears: external ears normal Mouth: Yes Normal oral and palatal mucosa present and Yes lip normal Eyes: Conjunctivae: conjunctivae normal Pupils: Equal, round and reactive pupils present EOM: EOMs intact bilaterally Neck: Neck: normal visual inspection and no lymphadenopathy Other: no C-spine point tenderness, step-offs no cervical paraspinal muscle tenderness to palpa
== END 2023-10-29 10:10 | disposition home or self-care (01) ==
PROVIDERS: Emergency Provider Nurse Practitioner Family; PCP Nurse Practitioner Family
DX: S56.911A Strain of unspecified muscles, fascia and tendons at forearm level, right arm, initial encounter (principal); W18.49XA Other slipping, tripping and stumbling without falling, initial encounter; K21.9 Gastro-esophageal reflux disease without esophagitis; I10 Essential (primary) hypertension; E55.9 Vitamin D deficiency, unspecified
CPT/HCPCS: 73080; 99213; G0463

== ENCOUNTER 2024-01-13 09:28 | Emergency (ER) | payer MEDICARE, MEDICAID, SELFPAY ==
--- NOTE | ~2024-01-13 | CT_ITS ---
CT abdomen pelvis wo con Ordering provider: Griffin Torres MD History: 78 years Male with . hematuria . Comparison: None. Technique: CT abdomen and pelvis without IV and without oral contrast. Automated exposure control and iterative reconstruction technique were employed. The dose-length product was 529.23 mGy-cm. Findings: VISUALIZED LOWER CHEST: Normal. Right hilar calcified lymph nodes. UPPER ABDOMINAL ORGANS: Liver: Normal. Gallbladder: Cholelithiasis. Spleen: Normal. Stomach/duodenum: Small sliding hernia. Pancreas: Atrophic. Adrenals: Normal. Kidneys: Cyst in the left kidney midpole measuring 4.3 x 5.4 cm. Tiny cyst in the left kidney lower p ole. Tiny stone in the right kidney lower pole. Tiny cyst in the right kidney lower pole. PELVIC ORGANS: The bladder is underfilled. Soft tissue density is seen in the urinary bladder which m ay be a mass or blood clot. Cystoscopy is advised. BOWEL AND MESENTERY: Colon: No evidence of diverticulitis. Normal appendix. Small Bowel: Normal. No obstruction. Peritoneum/mesentery: No free air or free fluid. No mesenteric lymphadenopathy. RETROPERITONEUM: Mild atheromatous disease of the abdominal aorta. No retroperitoneal lymphadenopat hy. MUSCULOSKELETAL: Superficial soft tissues: Small fat-containing umbilical hernia. Otherwise, The superficial soft tiss ues are normal. Bones: Age appropriate degenerative changes of the spine. IMPRESSION: 1. Soft tissue density in the urinary bladder suggestive of a mass or a clot.. Cystoscopy is advised . 2. Cholelithiasis. 3. Tiny Stone in the right kidney lower pole. 4. Bilateral renal cysts with the largest in the left kidney midpole. 5. Small sliding hiatus hernia. Small fat-containing umbilical hernia. Reviewed, dictated and finalized at location A. S TEAM LEADER IMPRESSION: 1. Soft tissue density in the urinary bladder suggestive of a mass or a clot.. Cystoscopy is advised. 2. Cholelithiasis. 3. Tiny Stone in the right kidney lower pole. 4. Bilateral renal cysts with the largest in the left kidney midpole. 5. Small sliding hiatus hernia. Small fat-containing umbilical hernia.
[2024-01-13 09:45] VITALS: BP 150/74; PULSE 65; RESP 17; TEMP 36.5; O2SAT 96
[2024-01-13 10:18] LABS: Add Urine Microscopic? YES; Appearance Urine Turbid (Clear); Bacteria Urine None Seen /hpf; Squamous Epithelial Cell Urine Occasional /hpf (Few); WBC Urine 21-50 /hpf (0-3)
[2024-01-13 10:19] LABS: Color Urine Red (Yellow); Need Manual Microscopic Reviewed; RBC Urine >100 /hpf (0-2)
--- NOTE | 2024-01-13 11:43 | ED.GENADULT ---
HPI - General Adult General Chief complaint: Urogenital-Male Stated complaint: hematuria Time Seen by Provider: 01/13/24 11:09 History of Present Illness HPI narrative: 78-year-old male presenting to the emergency department for evaluation for hematuria this been ongoing for the last 4 days. Patient states over the last 4 days he has had some strings of clots in his urine. Patient is on blood pressure medications but is not on any blood thinners. Patient does have prior history of hematuria. Patient denies any urinary retention. Related Data Home Medications Medication Instructions Recorded Confirmed cholecalciferol (vitamin D3) 125 5,000 unit PO DAILY 12/12/21 01/06/24 mcg (5,000 unit) tablet Allergies Allergy/AdvReac Type Severity Reaction Status Date / Time clarithromycin Allergy Unknown Dizziness Verified 01/13/24 09:48 Penicillins Allergy Unknown Swelling Verified 01/13/24 09:48 of Lip/Tongue/Throat Review of Systems Review of Systems: All systems reviewed & are unremarkable except as noted in HPI and below PMFSH Past Medical History Medical History Anxiety Arthritis of shoulder region, right, degenerative Bunion Cataract (lens) fragments in eye following cataract surgery Closed nondisplaced fracture of right patella Dizziness GERD (gastroesophageal reflux disease) Hearing loss History of patellar fracture (~01/15/23) Rt Hypertension, essential, benign Hypokalemia Memory loss Normal colonoscopy (~01/13/14) Dr Jernigan Vitamin D deficiency Wears glasses Surgical History Surgical History History of ankle surgery Family History Family History Sibling Family history of diabetes mellitus in first degree relative Other Arthritis Depression Diabetes mellitus Heart disease High cholesterol Hypertension Neuropathy Social History Social History Social History: caffeine occasionally Smoking status: Never smoker Second hand tobacco smoke exposure: No Alcohol intake: former Alcohol use details: no alcohol intake for 30 years Substance use: never Substance use type: does not use Do You Feel Safe in your Home?: Yes Lack of Transportation: No Lack of Food: Never True Current Housing: I Have Housing Concerned About Future Housing: No Difficulty Paying Gas/Electric Bills: No Difficulty Paying for Meds: No Currently Unemployed: No Difficulty w/ Childcare or Family Care: No Occupation/Education: retired Gender identity (if verbalized by the patient): Male Agree to blood products: Yes Exam Narrative: APPEARANCE: Well appearing, no pain, no distress, well-nourished. HEAD: normocephalic, atraumatic. EYES: PERRLA/EOMI, conjunctivae clear. NOSE: Normal no drainage EARS:TMS clear with good light reflex. THROAT: Pharynx clear, no exudate. NECK: Supple. No adenopathy, no masses. RESPIRATORY: Airway patent, respirations nonlabored. Clear to auscultation bilaterally, no rales, rhonchi, wheezing. CARDIOVASCULAR: Regular rate and rhythm without murmurs rubs or gallops. ABDOMINAL: Soft, nontender, nondistended, normal bowel sounds MUSCULOSKELETAL: Moves all extremities. Strength/ROM intact, No edema, No calf tenderness. NEURO: Alert. Cranial nerves II through XII intact. Good gait. Good coordination SKIN: Warm, dry. Normal Color Course Vital Signs Vital signs: Vital Signs Temperature 97.7 F 01/13/24 09:45 Pulse Rate 65 01/13/24 09:45 Respiratory Rate 17 01/13/24 09:45 Blood Pressure 150/74 H 01/13/24 09:45 Pulse Oximetry 96 01/13/24 09:45 Oxygen Delivery Room Air 01/13/24 09:45 Temperature 97.7 F 01/13/24 09:45 Pulse Rate 75 01/13/24 14:04 Respiratory Rate 18 01/13/24 14:04 Blood Pressure 145/82 H 01/13/24 14:04 Pulse Oximetry 98 01/13/24 14:04 Oxygen Delivery Room Air 01/13/24 09:45 Medical Decision Making [facility] Narrative Medical decision making narrative: 70-year-old male presents to the emergency department for evaluation for hematuria. Patient denies any urinary retention. Patient denies any pain with urination. CT scan showed soft tissue density in the urinary bladder suggestive of a mass or a clot. Cystoscopy is advised. Bladder scan showed no retained urine postvoid. Patient was updated results of his workup. Patient states that he will have close follow-up with Urology. Patient was also updated on reasons to return to the emergency department. All questions concerns were addressed. Patient was treated for a potential underlying urinary tract infection. Differential Diagnosis Differential Diagnosis: UTI, urinary retention, bladder mass, large clot Vital Signs Vital Signs: Vital Signs Temperature 97.7 F 01/13/24 09:45 Pulse Rate 65 01/13/24 09:45 Respiratory Rate 17 01/13/24 09:45 Blood Pressure 150/74 H 01/13/24 09:45 Pulse Oximetry 96 01/13/24 09:45 Oxygen Delivery Room Air 01/13/24 09:45 Temperature 97.7 F 01/13/24 09:45 Pulse Rate 75 01/13/24 14:04 Respiratory Rate 18 01/13/24 14:04 Blood Pressure 145/82 H 01/13/24 14:04 Pulse Oximetry 98 01/13/24 14:04 Oxygen Delivery Room Air 01/13/24 09:45 Lab Data Lab results reviewed: Yes I reviewed the patient's lab results. 01/13/24 12:41 01/13/24 11:54 Labs: Lab Results 01/13/24 01/13/24 01/13/24 Range/Units 09:56 11:54 12:41 WBC 7.9 (4.5-10.0) K/mm3 RBC 5.70 (4.6-6.20) M/mm3 Hgb 17.8 (14.0-18.0) g/dL Hct 51.0 (42.0-52.0) % MCV 89.5 (80-100) fl MCH 31.2 (26-34) pg MCHC 34.9 (32-36) g/dl RDW 12.5 (11.5-14.5) % Plt Count 243 (150-375) k/mm3 MPV 10.1 (7.4-10.4) fl Immature Gran % (Auto) 0.5 (0-0.5) % Neut % (Auto) 53.1 (45.5-73.1) % Lymph % (Auto) 32.2 (18.3-44.2) % [place] % (Auto) 11.8 H (2.6-8.5) % Eos % (Auto) 1.9 (0-4.4) % Baso % (Auto) 0.5 (0.2-1.2) % Lymph # (Auto) 2.55 (0.9-3.2) K/mm3 [place] # (Auto) 0.9 H (0.1-0.6) K/mm3 Eos # (Auto) 0.2 (0-0.3) K/mm3 Baso # (Auto) 0.0 (0.0-0.1) K/mm3 Abs Immat Gran (auto) 0.04 H (0.00-0.031) K/mm3 Absolute Neuts (auto) 4.2 (1.3-6.7) K/mm3 Absolute Nucleated RBC 0.000 (0.0-0.012) K/mm3 Nucleated RBC % 0.0 (0.0-0.2) % PT 14.8 H (11.1-14.7) Seconds INR 1.1 APTT 27.1 (22.3-36.8) Seconds Sodium 138 (137-145) mmol/L Potassium 3.9 (3.4-5.0) mmol/L Chloride 102 (98-107) mmol/L Carbon Dioxide 28 (22-30) mmol/L Anion Gap 8 (4-12) mmol/L BUN 21 H (9-20) mg/dL Creatinine 1.00 (0.7-1.3) mg/dL Estim Creat Clear Calc 63 ml/min Estimated GFR > 60 (59 - ) Glucose 75 (65-110) mg/dL Calcium 9.3 (8.4-10.2) mg/dL Total Bilirubin 1.7 H (0.2-1.3) mg/dL AST 35 (17-59) U/L ALT 22 (6-50) U/L Alkaline Phosphatase 78 (38-126) U/L Total Protein 9.0 H (6.3-8.2) g/dL Albumin 4.6 (3.5-5.1) g/dL Urine Color Red H (Yellow) Urine Appearance Turbid H (Clear) Urine pH TNP Ur Specific [place] TNP Urine Protein TNP Urine Glucose (UA) TNP Urine Ketones TNP Ur Blood (Man) TNP Urine Nitrate TNP Urine Bilirubin TNP Urine Urobilinogen TNP Add Ur Microanalysis Reviewed Leukocyte Esterase Rfl TNP Urine RBC >100 H (0-2) /hpf Urine WBC 21-50 H (0-3) /hpf Ur Squamous Epith Cells Occasional (Few) /hpf Urine Bacteria None seen /hpf Urine Casts 3-5 Imaging Data Radiologist's impression: Impressions Abdomen/Pelvis CT 01/13/24 11:50 IMPRESSION: 1. Soft tissue density in the urinary bladder suggestive of a mass or a clot.. Cystoscopy is advised. 2. Cholelithiasis. 3. Tiny Stone in the right kidney lower pole. 4. Bilateral renal cysts with the largest in the left kidney midpole. 5. Small sliding hiatus hernia. Small fat-containing umbilical hernia. Discharge Plan Discharge Clinical Impression: Hematuria Patient Disposition: Home, Self-Care Condition: Stable Instructions: Antibiotic Form, Hematuria (ED) Additional Instructions: CT scan showed a nonobstructing mass versus a blood clot. You will need to have a cystoscopy. You need to have close follow-up with Urology. Antibiotic as directed until completed. Worsening symptoms please call or return to the emergency department. Prescriptions: New levofloxacin 750 mg tablet 750 mg PO DAILY 7 Days Qty: 7 0RF No Action cholecalciferol (vitamin D3) 125 mcg (5,000 unit) tablet 5,000 unit PO DAILY chlorthalidone 25 mg tablet 25 mg PO DAILY Qty: 90 1RF atenolol 50 mg tablet 50 mg PO DAILY Qty: 90 1RF potassium chloride 20 mEq tablet extended release 20 meq PO DAILY Qty: 90 1RF tamsulosin 0.4 mg capsule 0.4 mg PO DAILY Qty: 90 1RF omeprazole 20 mg capsule,delayed release(DR/EC) 20 mg PO DAILY Qty: 90 1RF clonazepam 2 mg tablet 2 mg PO BID PRN (Reason: anxiety) Qty: 60 1RF Follow-up/Referrals: Juan Pablo Pickens MD [Physician] - Laurita Lewis NP [Primary Care Provider] -
[2024-01-13 12:33] LABS: Alanine Aminotransferase 22 U/L (6-50); Albumin Level 4.6 g/dL (3.5-5.1); Alkaline Phosphatase 78 U/L (38-126); Anion Gap 8 mmol/L (4-12); Aspartate Amino Transferase 35 U/L (17-59); Bilirubin,Total 1.7 mg/dL (0.2-1.3); Blood Urea Nitrogen 21 mg/dL (9-20); Calcium 9.3 mg/dL (8.4-10.2); Carbon Dioxide 28 mmol/L (22-30); Chloride 102 mmol/L (98-107); Estimated CRCL calculation 63 ml/min; Estimated Glomerular Filt Rate > 60; Glucose 75 mg/dL (65-110); Potassium 3.9 mmol/L (3.4-5.0); Sodium 138 mmol/L (137-145)
[2024-01-13 12:46] LABS: Basophils Percent Auto 0.5 % (0.2-1.2); Eosinophils Absolute Auto 0.2 K/mm3 (0-0.3); Eosinophils Percent Auto 1.9 % (0-4.4); Hemoglobin 17.8 g/dL (14.0-18.0); Immature Granulocyte Absolute 0.04 K/mm3 (0.00-0.031); Immature Granulocyte Percent A 0.5 % (0-0.5); Lymphocytes Absolute Auto 2.55 K/mm3 (0.9-3.2); Lymphocytes Percent Auto 32.2 % (18.3-44.2); Mean Corpuscular HGB Conc 34.9 g/dl (32-36); Mean Corpuscular Hemoglobin 31.2 pg (26-34); Mean Corpuscular Volume 89.5 fl (80-100); Mean Platelet Volume 10.1 fl (7.4-10.4); Monocytes Absolute Auto 0.9 K/mm3 (0.1-0.6); Monocytes Percent Auto 11.8 % (2.6-8.5); Neutrophils Absolute Auto 4.2 K/mm3 (1.3-6.7); Neutrophils Percent Auto 53.1 % (45.5-73.1); Platelet Count Result 243 k/mm3 (150-375); Red Cell Distribution Width 12.5 % (11.5-14.5); White Blood Count 7.9 K/mm3 (4.5-10.0)
[2024-01-13 12:57] LABS: INR 1.1; Partial Thromboplastin Time 27.1 Seconds (22.3-36.8); Prothrombin Time 14.8 Seconds (11.1-14.7)
[2024-01-13] MEDS: levoFLOXacin 750 MG TABLET PO (14:00)
[2024-01-13 14:04] VITALS: BP 145/82; PULSE 75; RESP 18; O2SAT 98
== END 2024-01-13 14:07 | disposition home or self-care (01) ==
PROVIDERS: Emergency Provider Emergency Medicine; PCP Nurse Practitioner Family
DX: R31.9 Hematuria, unspecified (principal); I10 Essential (primary) hypertension; E55.9 Vitamin D deficiency, unspecified
CPT/HCPCS: 36415; 74176; 80053; 81001; 85025; 85610; 85730; 99284; A9270

== ENCOUNTER 2024-04-01 17:48 | Emergency (ER) | payer MEDICARE, MEDICAID, SELFPAY ==
--- NOTE | ~2024-04-01 | XR_ITS ---
EXAM: XR knee RT min 4V DATE: 04/01/2024 19:03 HISTORY: HX OF PATELLA FX, GEN PAIN AFTER STEPPING IN TO TRUCK . COMPARISON: 02/26/2023. FINDINGS: Normal mineralization. No fracture or dislocation. No lytic or blastic lesion. Likely heal ed patellar fracture. Patellar and quadriceps enthesopathy. Tricompartmental osteoarthritis, moderate in the medial compartment. No erosion or periosteal change. Moderate knee joint effusion. IMPRESSION: No acute osseous finding in the right knee. Reviewed, dictated and finalized at location K. CAL EDUCATION SPECIALIST
--- OUTSIDE RECORDS SUMMARY | 2024-04-01 17:50 | XMS_ITS | Clinical Summary ---
Author Organization [facility] Address [address] [place] [address] Phone Care Team Providers Care Slot Ambassador Name Role Phone Laurita Lewis APRN, RANGE SCIENTIST Primary Care Provider U navailable Allergies Active Allergy Reactions Criticality Noted Date Comments Penicillins Anaphylaxis 08/20/2021 Medications clonazePAM (KlonoPIN) 2 MG Tablet Take 2 mg by mouth 2 times daily. Active Social History Tobacco Use Types Packs/Day Years Used Date Smoking Tobacco: Never Smokeless Tobacco: Never Alcohol Use Standard Drinks/Week Comments Not Currently 0 (1 standard drink = 0.6 oz pur e alcohol) Sex and Gender Information Value Date Recorded Sex Assigned at Not on file Legal Sex Male 9:14 PM CDT Gender Identity Not on file Sexual Orientation Not on file Last Filed Vital Signs Vital Sign Reading Time Taken Comments Blood Pressure 138/73 08/20/2021 7:45 PM CDT Pulse 76 08/20/2021 7:45 PM CDT Temperature 38.1 ??C (100.6 ??F) 08/20/2021 7:45 PM C DT Respiratory Rate 14 08/20/2021 7:21 PM CDT Oxygen Saturation 96% 08/20/2021 7:45 PM CDT Inhaled Oxygen Concentration - - Weight 96.2 kg (212 lb) 08/20/2021 7:21 PM CDT Height 175.3 cm (5' 9 ) 08/20/2021 7:21 PM CDT Body Mass Index 31.31 08/20/2021 7:21 PM CDT Plan of Treatment Not on file Insurance MEDICARE Care Teams Slot Ambassador Relationship Specialty Start Date End Date Laurita Lewis APRN, RANGE SCIENTIST PCP - General Certified Nurse Practitioner 08/20/21
[2024-04-01 17:56] VITALS: BP 133/58; PULSE 64; RESP 16; TEMP 36.4; O2SAT 97
--- NOTE | 2024-04-01 18:42 | ED.GENADULT ---
HPI - General Adult General Chief complaint: Extremity Injury, Lower Stated complaint: Right leg pain Time Seen by Provider: 04/01/24 18:42 Source: patient, RN notes reviewed and old records reviewed Mode of arrival: ambulatory Limitations: no limitations History of Present Illness HPI narrative: 78 year old male who [facility] with complaints of pain to his right knee. Patient reports that 2 days ago he was getting up into a semi truck cab and he some how hurt his knee. Patient denies any specific injury. Patient reports that pain is in his right anterior knee area and it radiates above and below his knee. He states that he broke that knee cap in the past. He states it feels stiff is able to bend knee with some increase in discomfort voices. He states that he has been taking Alleve for hs discomfort. MD complaint: right knee pain Onset (ago): day(s) (2) Location: right and lower extremity (knee) Severity: moderate Quality: aching Exacerbating factors: movement Treatments prior to arrival: other (Aleve) Related Data Home Medications ?Medication ?Instructions ?Recorded ?Confirmed ?Last Taken ?Type cholecalciferol (vitamin D3) 125 5,000 unit PO DAILY 12/12/21 01/29/24 Unknown History mcg (5,000 unit) tablet Allergies Allergy/AdvReac Type Severity Reaction Status Date / Time clarithromycin Allergy Unknown Dizziness Verified 01/29/24 10:02 Penicillins Allergy Unknown Swelling Verified 01/29/24 10:02 of Lip/Tongue/Throat Review of Systems Review of Systems: CONSTITUTIONAL: Denies fever, chills, or sweats. EYES: Denies visual changes, redness, or discharge. ENT: Denies rhinorrhea, congestion, sore throat, or otalgia. CARDIOVASCULAR: Denies chest pain, palpitations, or edema. RESPIRATORY: Denies cough or dyspnea. GASTROINTESTINAL: Denies abdominal pain, nausea, vomiting, or diarrhea. GENITOURINARY: Denies dysuria or hematuria. SKIN: Denies rash or itching. MUSCULOSKELETAL: Denies back pain, reports right anterior knee pain with some radiation of pain above and below his knee. or myalgia. NEUROLOGIC: Denies headache, numbness, or weakness. PSYCHIATRIC: Reports history of anxiety or depression. All systems reviewed & are unremarkable except as noted in HPI and below PMFSH Past Medical History Medical History Anxiety Arthritis of shoulder region, right, degenerative Bunion Cataract (lens) fragments in eye following cataract surgery Closed nondisplaced fracture of right patella Dizziness GERD (gastroesophageal reflux disease) Hearing loss History of patellar fracture (~01/15/23) Rt Hypertension, essential, benign Hypokalemia Memory loss Normal colonoscopy (~01/13/14) Dr Jernigan Vitamin D deficiency Wears glasses Surgical History Surgical History History of ankle surgery Family History Family History Sibling Family history of diabetes mellitus in first degree relative Other Arthritis Depression Diabetes mellitus Heart disease High cholesterol Hypertension Neuropathy Social History Social History Social History: caffeine occasionally Smoking status: Never smoker Second hand tobacco smoke exposure: No Alcohol intake: former Alcohol use details: no alcohol intake for 30 years Substance use: never Substance use type: does not use Do You Feel Safe in your Home?: Yes Lack of Transportation: No Lack of Food: Never True Current Housing: I Have Housing Concerned About Future Housing: No Difficulty Paying Gas/Electric Bills: No Difficulty Paying for Meds: No Currently Unemployed: No Difficulty w/ Childcare or Family Care: No Occupation/Education: retired Gender identity (if verbalized by the patient): Male Agree to blood products: Yes Comments At time of signature, agree with nursing past medical, surgical, social and family history. There is no relevant family history pertinent to the presenting complaint Exam Narrative: GENERAL: Well-appearing, well-nourished, and in no acute distress. HEAD: Normocephalic, atraumatic. EYES: PERRLA and EOMI. ENT: Nares clear, no rhinorrhea or epistaxis. Mucous membranes moist.TM's pearly teague with dull light reflex, throat pink with no swelling NECK: Supple. no lymphadenopathy CHEST: Clear to auscultation. No respiratory distress.no cough noted SAO2 97% on room air HEART: Regular rate and rhythm. No murmur heard. Normal peripheral pulses. ABDOMEN: Soft, nontender, nondistended, normal active bowel sounds. EXTREMITIES: Normal range of motion. No edema. Pain to anterior right knee with mild swelling noted reports radiation of pain above and below knee, sensation intact pedal pulse of adequate quality increased discomfort with bending of knee, deneis any pressure sensation to back of knee. SKIN: Warm, dry, no rash. NEURO: No focal deficits. Alert and oriented x3. Course Course Emergency Course: Patient is aware of diagnosis, understands and agrees to treatment plan.? Anticipatory guidance given.? Patient agrees to follow-up as directed and is aware of reasons to seek care at the emergency department. Portions of this record may have been created with voice recognition software Level of Care: Express Care Visit Vital Signs Vital signs: Vital Signs Temperature 36.4 C L 04/01/24 17:56 Pulse Rate 64 04/01/24 17:56 Respiratory Rate 16 04/01/24 17:56 Blood Pressure 133/58 L 04/01/24 17:56 Pulse Oximetry 97 04/01/24 17:56 Oxygen Delivery Room Air 04/01/24 17:56 Temperature 36.4 C L 04/01/24 17:56 Pulse Rate 64 04/01/24 17:56 Respiratory Rate 16 04/01/24 17:56 Blood Pressure 133/58 L 04/01/24 17:56 Pulse Oximetry 97 04/01/24 17:56 Oxygen Delivery Room Air 04/01/24 17:56 Reviewed Medical Decision Making MDM Narrative Medical decision making narrative: Exam findings and imaging show no acute concerns or changes; patient is non-toxic appearing and is in no distress.? Patient is appropriate for outpatient treatment and follow-up Differential Diagnosis Differential Diagnosis: right knee pain, strain of right knee, fracture of right knee, joint effusion right knee, osteoarthritis right knee Medical Records Medical records reviewed: Yes I reviewed the external patient's medical records. Vital Signs Vital Signs: Vital Signs Temperature 36.4 C L 04/01/24 17:56 Pulse Rate 64 04/01/24 17:56 Respiratory Rate 16 04/01/24 17:56 Blood Pressure 133/58 L 04/01/24 17:56 Pulse Oximetry 97 04/01/24 17:56 Oxygen Delivery Room Air 04/01/24 17:56 Temperature 36.4 C L 04/01/24 17:56 Pulse Rate 64 04/01/24 17:56 Respiratory Rate 16 04/01/24 17:56 Blood Pressure 133/58 L 04/01/24 17:56 Pulse Oximetry 97 04/01/24 17:56 Oxygen Delivery Room Air 04/01/24 17:56 Imaging Data Attestation: I personally reviewed and interpreted this imaging study as follows: My impression: no acute osseous findings, moderate right knee joint effusion, tricompartmental osteoarthritis moderate medial Radiologist's impression: [facility] [address] [place] [address] XRay Report Signed Patient: Calvin Perez : 1945 MR#: [id number] Age: 78 Acct:[id number] Loc: [facility] ADM Date: 04/01/24Attending Dr: Ordering Physician: Oly De Oliveira APRN Date of Service: 04/01/24 Procedure(s): XR knee RT min 4V Accession Number(s): [id number] cc: Debora Peter MD; Oly De Oliveira APRN~ EXAM: XR knee RT min 4V DATE: 04/01/2024 19:03 HISTORY: HX OF PATELLA FX, GEN PAIN AFTER STEPPING IN TO TRUCK . COMPARISON: 02/26/2023. FINDINGS: Normal mineralization. No fracture or dislocation. No lytic or blastic lesion. Likely healed patellar fracture. Patellar and quadriceps enthesopathy. Tricompartmental osteoarthritis, moderate in the medial compartment. No erosion or periosteal change. Moderate knee joint effusion. IMPRESSION: No acute osseous finding in the right knee. Reviewed, dictated and finalized at location K. NEYMAN WIREMAN Please be advised this is a medical document. It is intended for [id number] communication. It is written in medical language and may contain unfamiliar abbreviations or verbiage. Medical documents are intended to carry relevant information, facts as evident, and the clinical opinion of the practitioner at the time of the encounter. This report may have been done utilizing a voice recognition system. Attempts have been made to correct errors. However, there may be uncorrected grammatical, spelling, and recognition errors present. The file time of this note does not necessarily represent the time of service. Dictated By: Ant Morrissey MD 04/01/24 1904 Signed By: <Electronically signed by Ant Morrissey MD in OV> Critical Care Time Critical Care Time Critical Care Time: No Discharge Plan Discharge Clinical Impression: Effusion of knee joint right, Tricompartment osteoarthritis of right knee Patient Disposition: Home, Self-Care Condition: Stable Instructions: Antibiotic Form, Osteoarthritis (ED), Swollen Knee Joint (ED) Additional Instructions: Elastic wrap or orthopedic splint as directed for comfort for the next 5-7 days Neoprene compression sleeve to right knee for comfort measure Tylenol for lesser pain Ibuprofen regularly for the next 2-3 days for the inflammation Follow-up with orthopedic surgeon if no improvement in your discomfort you saw Dr Luevano office previously when fractured knee cap Follow-up with PCP if further problems or concerns Ice to the area 20-30 minutes 4-6 times a day Elevate above heart If your symptoms persist, change or worsen significantly before you can contact your personal physician then please, without delay, go to the emergency department for further evaluation. Follow-up with PCP in 7-10 days or sooner if needed Follow up with PCP soon in regards to your blood pressure which is elevated above threshold for referral. Blood pressure above 120/80 may indicate pre-hypertension. 133/58 Patient Language: Citizen Of [place] Prescriptions: No Action cholecalciferol (vitamin D3) 125 mcg (5,000 unit) tablet 5,000 unit PO DAILY escitalopram oxalate [Lexapro] 5 mg tablet 5 mg PO DAILY Qty: 7 0RF Rx Instructions: take 5 mg daily for 7 days then take 10 mg daily escitalopram oxalate [Lexapro] 10 mg tablet 10 mg PO DAILY Qty: 90 1RF Rx Instructions: take 5 mg daily for 7 days then take 10 mg daily potassium chloride 20 mEq tablet extended release 20 meq PO DAILY Qty: 90 1RF tamsulosin 0.4 mg capsule 0.4 mg PO DAILY Qty: 90 1RF omeprazole 20 mg capsule,delayed release(DR/EC) 20 mg PO DAILY Qty: 90 1RF chlorthalidone 25 mg tablet 25 mg PO DAILY Qty: 90 1RF atenolol 50 mg tablet 50 mg PO DAILY Qty: 90 1RF clonazepam 2 mg tablet 2 mg PO BID PRN (Reason: anxiety) Qty: 60 1RF Follow-up/Referrals: Sathya Peter MD [Primary Care Provider] - Time of Disposition: 19:49 Quality [place] Coma Scale Eyes: Open Verbal: Oriented and Alert Motor: Follows Commands [place] Coma Total Score: 15
== END 2024-04-01 19:54 | disposition home or self-care (01) ==
PROVIDERS: Emergency Provider Registered Nurse; PCP Family Medicine
DX: M25.461 Effusion, right knee (principal); M17.11 Unilateral primary osteoarthritis, right knee; I10 Essential (primary) hypertension; K21.9 Gastro-esophageal reflux disease without esophagitis; M19.011 Primary osteoarthritis, right shoulder; E55.9 Vitamin D deficiency, unspecified; F41.9 Anxiety disorder, unspecified
CPT/HCPCS: 73564; 99213; G0463

== ENCOUNTER 2024-07-07 09:59 | Outpatient (CLI) | payer MEDICARE, MEDICAID, SELFPAY ==
--- OUTSIDE RECORDS SUMMARY | 2024-07-07 10:48 | XMS_ITS | Clinical Summary ---
Author Organization [facility] Address [address] [place] [address] Phone Care Team Providers Care Corrugated Sheet Material Sheeter Name Role Phone Laurita Lewis APRN, APPRENTICE CARPENTER Primary Care Provider + Allergies Active Allergy Reactions Criticality Noted Date [...] 76 08/20/2021 7:45 PM CDT Temperature 38.1 C (100.6 F) 08/20/2021 7:45 PM CDT Respiratory Rate 14 08/20/2021 7:21 PM CDT Oxygen Saturation 96% 08/20/2021 7:45 PM CDT Inhaled Oxygen Concentration - - Weight 96.2 kg (212 lb) 08/20/2021 7:21 PM CDT Height 175.3 cm (5' 9 ) 08/20/2021 7:21 PM CDT Body Mass Index 31.31 08/20/2021 7:21 PM CDT Plan of Treatment Not on file Insurance MEDICARE Care Teams Corrugated Sheet Material Sheeter Relationship Specialty Start Date End Date Laurita Lewis APRN, APPRENTICE CARPENTER PCP - General Certified Nurse Practitioner 08/20/21
[2024-07-07 12:43] LABS: Basophils Absolute Auto 0.1 K/mm3 (0.0-0.1); Basophils Percent Auto 0.7 % (0.2-1.2); Eosinophils Absolute Auto 0.2 K/mm3 (0-0.3); Eosinophils Percent Auto 2.6 % (0-4.4); Hemoglobin 17.1 g/dL (14.0-18.0); Immature Granulocyte Absolute 0.04 K/mm3 (0.00-0.031); Immature Granulocyte Percent A 0.5 % (0-0.5); Lymphocytes Percent Auto 31.1 % (18.3-44.2); Mean Corpuscular HGB Conc 32.9 g/dl (32-36); Mean Corpuscular Volume 91.2 fl (80-100); Mean Platelet Volume 11.2 fl (7.4-10.4); Monocytes Percent Auto 13.4 % (2.6-8.5); Neutrophils Absolute Auto 3.8 K/mm3 (1.3-6.7); Neutrophils Percent Auto 51.7 % (45.5-73.1); Platelet Count Result 261 k/mm3 (150-375); Red Cell Distribution Width 13.2 % (11.5-14.5); White Blood Count 7.4 K/mm3 (4.5-10.0)
[2024-07-07 12:54] LABS: Alanine Aminotransferase 23 U/L (6-50); Albumin Level 4.4 g/dL (3.5-5.1); Alkaline Phosphatase 87 U/L (38-126); Anion Gap 7 mmol/L (4-12); Aspartate Amino Transferase 55 U/L (17-59); Bilirubin,Total 2.2 mg/dL (0.2-1.3); Blood Urea Nitrogen 17 mg/dL (9-20); Carbon Dioxide 32 mmol/L (22-30); Chloride 100 mmol/L (98-107); Cholesterol 203 mg/dL (0-200); Estimated Glomerular Filt Rate 58; Glucose 107 mg/dL (65-110); HDL Direct 44 mg/dL; Potassium 3.9 mmol/L (3.4-5.0); Sodium 139 mmol/L (137-145); Triglycerides 166 mg/dL (<150)
[2024-07-07 13:09] LABS: LDL Cholesterol Direct 95 mg/dL
[2024-07-07 13:22] LABS: Hemoglobin A1C 5.4 % (<5.7)
[2024-07-07 13:28] LABS: Prostate Specific Antigen 2.9 ng/mL (< OR = 4.0)
[2024-07-07 13:31] LABS: Free T4 Free Thyroxine 1.14 ng/dL (0.78-2.19); Vitamin D 25 Hydroxy 86.7 ng/mL
== END 2024-07-07 10:00 | disposition home or self-care (01) ==
LOC: ANHGOSHLAB 10:01
PROVIDERS: PCP Family Medicine; Visit Provider Nurse Practitioner Family
DX: Z12.5 Encounter for screening for malignant neoplasm of prostate (principal); E78.5 Hyperlipidemia, unspecified; R53.83 Other fatigue; E55.9 Vitamin D deficiency, unspecified; I10 Essential (primary) hypertension; E16.2 Hypoglycemia, unspecified
CPT/HCPCS: 36415; 80053; 80061; 82306; 82607; 83036; 84153; 84403; 84439; 84443; 85025; G0103

== ENCOUNTER 2024-07-28 10:17 | Emergency (ER) | payer MEDICARE, MEDICAID, SELFPAY ==
--- OUTSIDE RECORDS SUMMARY | 2024-07-28 10:25 | XMS_ITS | Clinical Summary ---
Author Organization [facility] Address [address] [place] [address] Phone Care Team Providers Care Rug Setter Velvet Name Role Phone Laurita Lewis APRN, VALVE STEAMER Primary Care Provider + Allergies Active Allergy [...] 7:21 PM CDT Height 175.3 cm (5' 9) 08/20/2021 7:21 PM CDT Body Mass Index 31.31 08/20/2021 7:21 PM CDT Plan of Treatment Not on file Insurance MEDICARE Member Subscriber Plan / Payer (Ef fective 2010-Present) Name:Calvin Perez Member ID:[id number] Relation to Subscriber:Self Name:Calvin Perez Subscriber ID:[id number] Payer ID:[id number] Group ID:Not on file Type:Not on file Address: [facility] [address] [email or web address] [facility], [facility] [place] [address] Care Teams Rug Setter Velvet Relationship Specialty Start Date End Date Laurita Lewis APRN, VALVE STEAMER PCP - General Certified Nurse Practitioner 08/20/21
--- NOTE | 2024-07-28 10:26 | ED.URI ---
HPI - URI/Sore Throat General Chief Complaint: Upper Respiratory Infection Stated Complaint: flu like symptoms Time Seen by Provider: 07/28/24 10:26 Source: patient Mode of arrival: ambulatory Limitations: no limitations History of Present Illness HPI Narrative: Calvin is a 79-year-old male patient presenting to the clinic today with complaints of cough, runny nose, chest congestion, and feeling feverish x3 days. He reports he was unable to check his temperature however he felt feverish. Has taken 1 Tylenol pill for his symptoms. States the bottle did not say how much he can take. Has not tried any over the [id number] medications. Denies any chest pain or shortness of breath. He is requesting Covid and influenza testing. Related Data Home Medications ?Medication ?Instructions ?Recorded ?Confirmed ?Last Taken ?Type cholecalciferol (vitamin D3) 125 5,000 unit PO DAILY 12/12/21 07/07/24 Unknown History mcg (5,000 unit) tablet Allergies Allergy/AdvReac Type Severity Reaction Status Date / Time clarithromycin Allergy Unknown Dizziness Verified 07/07/24 09:03 Penicillins Allergy Unknown Swelling Verified 07/07/24 09:03 of Lip/Tongue/Throat Review of Systems Review of Systems: Pertinent positives per HPI. Patient denies any rash, headache, visual changes, dizziness, shortness of breath, chest pain, palpitations, nausea, vomiting, diarrhea, constipation, abdominal pain, or any urinary issues. [facility] Past Medical History Medical History History of patellar fracture (~01/15/23) Rt Closed nondisplaced fracture of right patella Hypokalemia Bunion Vitamin D deficiency Cataract (lens) fragments in eye following cataract surgery Hearing loss Wears glasses Memory loss Dizziness Arthritis of shoulder region, right, degenerative Normal colonoscopy (~01/13/14) Dr Jernigan GERD (gastroesophageal reflux disease) Anxiety Hypertension, essential, benign Surgical History Surgical History History of ankle surgery Family History Family History Sibling Family history of diabetes mellitus in first degree relative Other Arthritis Depression Diabetes mellitus Heart disease High cholesterol Hypertension Neuropathy Social History Social History Social History: caffeine occasionally Smoking status: Never smoker Second hand tobacco smoke exposure: No Alcohol intake: former Alcohol use details: no alcohol intake for 30 years Substance use: never Substance use type: does not use Do You Feel Safe in your Home?: Yes Lack of Transportation: No Lack of Food: Never True Current Housing: I Have Housing Concerned About Future Housing: No Difficulty Paying Gas/Electric Bills: No Difficulty Paying for Meds: No Currently Unemployed: No Difficulty w/ Childcare or Family Care: No Occupation/Education: retired Gender identity (if verbalized by the patient): Male Agree to blood products: Yes Comments At the time of my signature, I reviewed and agree with the nursing past medical, surgical, social, and family history. There is no relevant family history pertinent to the patient complaint. Exam Narrative: General: Well-developed, well nourished, in no apparent distress Head: Normocephalic, atraumatic Eyes: Pupils equally round and reactive to light bilaterally, EOM intact, sclera and conjunctive clear, no discharge, lids normal Ears: TMs intact and congested, ear canals clear, no drainage, grossly hearing normal. Nose: Nares patent, clear nasal discharge, moderate inflammation, no sinus tenderness. Mouth: Oral pharynx without lesions or masses, good dentition, MMM. Postnasal drip Neck: Supple, trachea midline, no enlargement of anterior or posterior cervical nodes, no thyroid masses or goiter palpable. Cardio: Regular rate and rhythm, s1 and s2 normal, no murmur appreciated. Resp: Clear to auscultation bilaterally, no rhonchi, rales, wheezing or rubs Course Course Emergency Course: Portions of this record may have been created with voice recognition software. Level of Care: Express Care Visit Vital Signs Vital signs: Vital Signs Temperature 36.5 C 07/28/24 10:34 Pulse Rate 73 07/28/24 10:34 Respiratory Rate 16 07/28/24 10:34 Blood Pressure 112/76 07/28/24 10:34 Pulse Oximetry 97 07/28/24 10:34 Oxygen Delivery Room Air 07/28/24 10:34 Temperature 36.5 C 07/28/24 10:34 Pulse Rate 73 07/28/24 10:34 Respiratory Rate 16 07/28/24 10:34 Blood Pressure 112/76 07/28/24 10:34 Pulse Oximetry 97 07/28/24 10:34 Oxygen Delivery Room Air 07/28/24 10:34 Vital signs reviewed MDM - URI/Sore Throat MDM Narrative Medical decision making narrative: At the time of visit patient is resting comfortably on the exam table. Patient appears to be nontoxic. Labs: COVID and influenza testing was negative in the clinic today. Plan: I suspect patient has URI cough and congestion. No signs bacterial infection in the clinic today. Lung sounds are clear. Oxygen saturations 97% on room air patient is not in any respiratory distress. Supportive measures were discussed with the patient and they voiced understanding discharge instructions and agrees to treatment plan. Return precautions reviewed Differential Diagnosis Differential diagnosis: Likely upper respiratory infection, otitis media, sinusitis, viral infection, bronchitis, influenza, pharyngitis and other (COVID) Discharge Plan Discharge Clinical Impression: Upper respiratory infection with cough and congestion Patient Disposition: Home Condition: Stable Instructions: Antibiotic Form, Cold Symptoms (ED) Additional Instructions: COVID and influenza testing was negative in the clinic today. Lung sounds are clear and there is no sign of bacterial infection in the clinic today. May take Coricidin HBP Cough and cold for cold/flu symptoms Increase fluids and stay well hydrated May take 1000 mg of Tylenol every 8 hours as needed for pain or fever May take 600 mg of Ibuprofen every 8 hours as needed for pain or fever May take Flonase 2 sprays in each nare daily and OTC antihistamines such as Claritin 10 mg daily or Zyrtec 10 mg daily as directed Vicks vapor rub to open sinuses Sinus rinses for congestion Cepacol spray, cough drops, throat lozenges, warm tea with honey/lemon, gargle salt water to soothe throat BRAT diet for diarrhea Clear liquids x 24 hours then advance as tolerated for nausea/vomiting Go to the ED if you develop a worsening in your condition- high fever not controlled by Tylenol or Motrin, dehydration, weakness, lethargy, shortness of breath, or chest pain. Follow up with your PCP in 3-5 days if symptoms persist. Patient Language: Iranian Prescriptions: No Action cholecalciferol (vitamin D3) 125 mcg (5,000 unit) tablet 5,000 unit PO DAILY chlorthalidone 25 mg tablet 25 mg PO DAILY Qty: 90 1RF atenolol 50 mg tablet 50 mg PO DAILY Qty: 90 1RF potassium chloride 20 mEq tablet extended release 20 meq PO DAILY Qty: 90 1RF tamsulosin 0.4 mg capsule 0.4 mg PO DAILY Qty: 90 1RF omeprazole 20 mg capsule,delayed release(DR/EC) 20 mg PO DAILY Qty: 90 1RF clonazepam 2 mg tablet 2 mg PO BID PRN (Reason: anxiety) Qty: 60 1RF Follow-up/Referrals: Laurita Lewis MARINE ELECTRONICS REPAIRER [Primary Care Provider] - Stand Alone Forms: Work/School Release IP Time of Disposition: 10:45 Quality NIHSS Nursing Documentation ED NIHSS nursing documentation: reviewed/agree
[2024-07-28 10:34] VITALS: BP 112/76; PULSE 73; RESP 16; TEMP 36.5; O2SAT 97
[2024-07-28 10:52] LABS: EDCOVIDSCREEN Negative (Negative); EDINFLUASCREEN Negative (Negative); EDINFLUBSCREEN Negative (Negative)
== END 2024-07-28 10:59 | disposition home or self-care (01) ==
PROVIDERS: Emergency Provider Nurse Practitioner Family; PCP Nurse Practitioner Family
DX: J06.9 Acute upper respiratory infection, unspecified (principal); Z20.822 Contact with and (suspected) exposure to COVID-19; R05.9 Cough, unspecified; E55.9 Vitamin D deficiency, unspecified; M19.011 Primary osteoarthritis, right shoulder; I10 Essential (primary) hypertension; K21.9 Gastro-esophageal reflux disease without esophagitis; F41.9 Anxiety disorder, unspecified
CPT/HCPCS: 87426; 87804; 99212; G0463

== ENCOUNTER 2025-01-08 10:51 | Outpatient (CLI) | payer MEDICARE, MEDICAID, SELFPAY ==
--- OUTSIDE RECORDS SUMMARY | 2025-01-08 11:35 | XMS_ITS | Clinical Summary ---
Author Organization [facility] Address [address] [place] [address] Phone Care Team Providers Care Condenser Setter Name Role Phone Laurita Lewis APRN, REGISTERED PHLEBOTOMIST PART TIME Primary Care Provider + Allergies Active Allergy [...] Not on file Insurance MEDICARE Care Teams Condenser Setter Relationship Specialty Start Date End Date Laurita Lewis APRN, REGISTERED PHLEBOTOMIST PART TIME PCP - General Certified Nurse Practitioner 08/20/21
[2025-01-08 12:55] LABS: Hematocrit 50.2 % (42.0-52.0); Hemoglobin 17.1 g/dL (14.0-18.0); Immature Granulocyte Percent A 0.5 % (0-0.5); Lymphocytes Absolute Auto 2.81 K/mm3 (0.9-3.2); Mean Corpuscular HGB Conc 34.1 g/dl (32-36); Mean Corpuscular Hemoglobin 30.5 pg (26-34); Mean Corpuscular Volume 89.6 fl (80-100); Nucleated Red Blood Cells Absolute Auto 0.000 K/mm3 (0.0-0.012); Nucleated Red Blood Cells Perc 0.0 % (0.0-0.2); Platelet Count Result 264 k/mm3 (150-375); Red Blood Count 5.60 M/mm3 (4.6-6.20); White Blood Count 8.4 K/mm3 (4.5-10.0)
[2025-01-08 13:06] LABS: Alanine Aminotransferase 21 U/L (6-50); Albumin Level 4.2 g/dL (3.5-5.1); Alkaline Phosphatase 69 U/L (38-126); Anion Gap 5 mmol/L (4-12); Aspartate Amino Transferase 76 U/L (17-59); Bilirubin,Total 1.7 mg/dL (0.2-1.3); Blood Urea Nitrogen 24 mg/dL (9-20); Calcium 8.8 mg/dL (8.4-10.2); Carbon Dioxide 31 mmol/L (22-30); Chloride 101 mmol/L (98-107); Cholesterol 180 mg/dL (0-200); Estimated Glomerular Filt Rate 52; Glucose 83 mg/dL (65-110); HDL Direct 37 mg/dL; Sodium 137 mmol/L (137-145); Total Protein 7.7 g/dL (6.3-8.2); Triglycerides 143 mg/dL (<150)
[2025-01-08 13:18] LABS: Potassium 3.4 mmol/L (3.4-5.0)
== END 2025-01-08 10:52 | disposition home or self-care (01) ==
LOC: ANHGOSHLAB 10:52
PROVIDERS: PCP Nurse Practitioner Family; Visit Provider Nurse Practitioner Family
DX: I10 Essential (primary) hypertension (principal)
CPT/HCPCS: 36415; 80053; 80061; 85025

== ENCOUNTER 2025-02-11 08:17 | Outpatient (CLI) | payer MEDICARE, MEDICAID, SELFPAY ==
[2025-02-11 19:02] LABS: Alanine Aminotransferase 23 U/L (6-50); Albumin Level 4.1 g/dL (3.5-5.1); Alkaline Phosphatase 90 U/L (38-126); Anion Gap 5 mmol/L (4-12); Aspartate Amino Transferase 38 U/L (17-59); Bilirubin,Total 1.4 mg/dL (0.2-1.3); Blood Urea Nitrogen 19 mg/dL (9-20); Calcium 8.8 mg/dL (8.4-10.2); Carbon Dioxide 31 mmol/L (22-30); Chloride 102 mmol/L (98-107); Estimated Glomerular Filt Rate 56; Glucose 115 mg/dL (65-110); Potassium 3.7 mmol/L (3.4-5.0); Sodium 138 mmol/L (137-145); Total Protein 7.4 g/dL (6.3-8.2)
== END 2025-02-11 08:18 | disposition home or self-care (01) ==
PROVIDERS: PCP Nurse Practitioner Family; Visit Provider Nurse Practitioner Family
DX: R74.01 Elevation of levels of liver transaminase levels (principal)
CPT/HCPCS: 36415; 80053